=== PATIENT | female | born 1965 | race Caucasian/White ===

== ENCOUNTER → 2016-11-12 | Outpatient (CLI) | payer OTHER ==
--- NOTE | 2016-11-12 10:02 | MR ---
MRI of the brain with and without contrast HISTORY: Headaches. TECHNIQUE: T1-weighted sagittal, T2, FLAIR, and diffusion axial, postcontrast T1 axial and coronal vi ews of the brain are submitted. CONTRAST: 15 mL MultiHance COMPARISON: 03/06/2016 FINDINGS: There is no evidence of acute ischemia. The ventricles, basal cisterns, and sulci overlying the co nvexities are consistent with the patient's age. There is no mass effect or enhancing mass. Craniocervical junction maintained. Sella turcica has a normal appearance. No evidence of cerebellopo ntine angle mass. WHITE MATTER: There is faint confluent abnormal signal in the periventricular white matter as well as approximately 18 focal areas of abnormal signal within the white matter the largest seen overlying the left periat rial region measuring 8 mm. No enhancing lesions. There are 2 lesions which appear perpendicular to t he ventricular system. There is a single callosal lesion. IMPRESSION: 1. There are changes within the white matter which are nonspecific but can be associated with demyeli nating process including a mass. The size, number and morphology of lesions are stable from the previ ous exam. No enhancing or new lesions.
== END | disposition home or self-care (01) ==
LOC: RADMRIMAIN 08:51
PROVIDERS: ATTEND Psychiatry & Neurology Neurology
DX: G35 Multiple sclerosis (principal); R90.82 White matter disease, unspecified
CPT/HCPCS: 70553; A9577

== ENCOUNTER → 2016-12-23 | Outpatient (CLI) | payer OTHER ==
--- NOTE | 2016-12-23 23:09 | MR ---
EXAMINATION TYPE: MR lumbar spine wo/w con DATE OF EXAM: 12/23/2016 COMPARISON: NONE HISTORY: 51-year-old female with low back pain x3 months Technique: Multiplanar, multisequence images of the lumbar spine were obtained before and after admin istration of 20 mL intravenous MultiHance gadolinium contrast. FINDINGS: A couple incidental sacral Tarlov cysts measuring up to 1.5 cm. Vertebral body heights are preserved and alignment is maintained. Mild heterogeneity of marrow signal with some scattered fatty marrow islands versus fatty matrix elias ngiomas especially in the L4 and L5 vertebral bodies. A T2 hyperintense, T1 dark, and enhancing round lesion within the L2 vertebral body suspected to represent an atypical hemangioma. Otherwise, no real picious bone marrow replacement. Variable mild intervertebral disc desiccation within the lower lumbar spine along with facet arthropa thy. There is some ligamentum flavum thickening in the lower thoracic spine. At T12-L1, is minimal bulging disc without canal or foraminal stenosis. At L1-L2, no spinal canal or neuroforaminal stenosis. At L2-L3, no spinal canal or neuroforaminal stenosis. At L3-L4, mild diffuse disc bulge with a facet degenerative change. No significant spinal canal or ne uroforaminal stenosis. At L4-L5, minimal diffuse disc bulge and mild facet arthropathy. There is also some ligamentum flavum thickening. No significant spinal canal or foraminal stenosis. At L5-S1, there is hypertrophic facet arthropathy without significant spinal canal or foraminal steno sis. No abnormal enhancement seen within the spinal canal. No prevertebral or paravertebral soft tissue abnormality seen. IMPRESSION: 1. Mild multilevel degenerative disc disease and facet arthropathy especially in the mid to lower lum bar spine. There is more advanced hypertrophic facet arthropathy at L5-S1. 2. No malalignment or significant canal or foraminal stenosis.
== END | disposition home or self-care (01) ==
LOC: RADMRIMAIN 16:59
PROVIDERS: ATTEND Psychiatry & Neurology Neurology
DX: M51.17 Intervertebral disc disorders with radiculopathy, lumbosacral region (principal); M46.87 Other specified inflammatory spondylopathies, lumbosacral region
CPT/HCPCS: 72158; A9577

== ENCOUNTER → 2017-08-15 | Outpatient (CLI) | payer OTHER ==
[2017-08-15 11:26] LABS: HCT 42.9 % (34.0-46.0); HGB 13.9 gm/dL (11.4-16.0); MCH 28.7 pg (25.0-35.0); MCHC 32.3 g/dL (31.0-37.0); MCV 88.9 fL (80.0-100.0); Mean Platelet Volume 6.8; Platelet Count 343 k/uL (150-450); RBC 4.82 m/uL (3.80-5.40); RDW 13.4 % (11.5-15.5); WBC 10.7 k/uL (3.8-10.6)
[2017-08-15 11:34] LABS: ALT 36 U/L (9-52); AST 32 U/L (14-36); Anion Gap 9 mmol/L; Blood Urea Nitrogen 9 mg/dL (7-17); Calcium 9.3 mg/dL (8.4-10.2); Carbon Dioxide 29 mmol/L (22-30); Chloride 106 mmol/L (98-107); Glucose 89 mg/dL (74-99); Potassium 4.2 mmol/L (3.5-5.1); Sodium 144 mmol/L (137-145)
== END | disposition home or self-care (01) ==
LOC: LABWHC1 10:55
PROVIDERS: ATTEND Psychiatry & Neurology Neurology
DX: G35 Multiple sclerosis (principal)
CPT/HCPCS: 36415; 80048; 82306; 84450; 84460; 85027

== ENCOUNTER 2018-05-10 06:43 | Inpatient (IN) | payer OTHER ==
[2018-05-03 10:36] VITALS: BMI 37.3
[~2018-05-10 06:43] MED LIST: BACITRACIN 50,000 UNIT, POLYMYXIN B 500,000 UNIT in SODIUM CHLORIDE 0.9% IRRIGATIO 1,00... IRRIGATION ONE; DEXAMETHASONE SOD PHOSPHATE 10 MG/ML 1 ML VIAL IV ONE; MIDAZOLAM 2 MG/2 ML VIAL IV PRN; ONDANSETRON 4 MG/2 ML VIAL IVP ONE; ceFAZolin IN SWFI 2 GM/20 ML SYRINGE IVP ONE
[2018-05-10] MEDS: LACTATED RINGERS 1,000 ML IV SCH (07:44)
[2018-05-10] MEDS ORDERED: LIDOCAINE 1% 20 ML VIAL (10MG/ML) FOR IV START INTRADERMA ONE (07:45)
[2018-05-10 08:11] LABS: Anion Gap 8 mmol/L; Blood Urea Nitrogen 11 mg/dL (7-17); Calcium 9.1 mg/dL (8.4-10.2); Carbon Dioxide 25 mmol/L (22-30); Chloride 109 mmol/L (98-107); Glucose 93 mg/dL (74-99); Potassium 3.8 mmol/L (3.5-5.1); Sodium 142 mmol/L (137-145)
[2018-05-10] MEDS ORDERED: MIDAZOLAM 2 MG/2 ML VIAL ONE (08:24)
[2018-05-10] MEDS ORDERED: fentaNYL (PF) 50 MCG/ML 2 ML AMP ONE (08:24)
[2018-05-10] MEDS ORDERED: ROCURONIUM BROMIDE 10 MG/ML 10 ML VIAL IV ONE (08:24)
[2018-05-10] MEDS ORDERED: PROPOFOL 10 MG/ML 20 ML VIAL IV ONE (08:24)
[2018-05-10] MEDS ORDERED: PHENYLEPHRINE-0.9% NACL SYG 1 MG/10 ML SYRINGE ONE (08:24)
[2018-05-10] MEDS ORDERED: LIDOCAINE 1% INJ 10MG/ML (20 ML MDV) ONE (08:24)
[2018-05-10] MEDS ORDERED: LIDOCAINE 0.5%-EPI 1:200,000 50 ML VIAL SQ ONE (08:38)
[2018-05-10] MEDS ORDERED: THROMBIN (BOVINE) 5,000 UNIT VIAL TOPICAL ONE (08:38)
[2018-05-10] MEDS ORDERED: GELATIN SPONGE,ABSORB (LARGE) 1 EACH SPONGE TOPICAL ONE (08:38)
[2018-05-10] MEDS ORDERED: LACTATED RINGERS 1,000 ML IV ONE (09:33)
[2018-05-10] MEDS ORDERED: HYDROcodone/APAP 5-325MG 1 EACH TAB PO PRN (11:45)
[2018-05-10] MEDS ORDERED: ONDANSETRON 4 MG/2 ML VIAL IVP PRN (11:45)
[2018-05-10] MEDS ORDERED: BENZOCAINE/MENTHOL LOZENG 1 EACH LOZENGE MUCOUS MEM PRN (11:45)
[2018-05-10] MEDS ORDERED: HYDROmorphone 1 MG/ML 1 ML SYRINGE IVP PRN ×2 (11:45)
[2018-05-10] MEDS ORDERED: MAGNESIUM HYDROXIDE 2,400 MG/10 ML CUP PO PRN (11:45)
--- NOTE | 2018-05-10 11:52 | P.OP ---
Date of Procedure: 05/10/18 Preoperative Diagnosis: Grade 2 dynamic spondylolisthesis L5-S1, low back pain, degenerative disc disease, foraminal stenosis, lower extremity radiculopathy Postoperative Diagnosis: Grade 2 dynamic spondylolisthesis L5-S1, low back pain, degenerative disc disease, foraminal stenosis, lower extremity radiculopathy Anesthesia: GETA Pathology: none sent Condition: stable Disposition: PACU Description of Procedure: DESCRIPTION OF PROCEDURE(S): BRIEF OPERATIVE NOTE Preoperative Diagnosis: Grade 2 dynamic spondylolisthesis L5-S1, low back pain, degenerative disc disease, foraminal stenosis, lower extremity radiculopathy Postoperative Diagnosis:Grade 2 dynamic spondylolisthesis L5-S1, low back pain, degenerative disc disease, foraminal stenosis, lower extremity radiculopathy Procedure: Laminectomy and decompression L5-S1 Minimally invasive Posterior lateral decompression and facet fusion L5-S1 Minimally invasive Transforaminal lumbar interbody fusion for a 360 fusion L5-S1 Discectomy for decompression L5-S1 Placement of interbody graft L5-S1 Local autogenous bone grafting Harvesting of bone marrow aspirate the area of the pedicle and vertebral body of L5 on the right Use of Cell Saver Use of bone graft extenders Surgeon: Dr. Wallis Licensing Representative: Jarad Haines is present throughout the entire the case persistence during positioning, dissection, exposure, visualization, and all crucial elements of the case as well as closure. Anesthesia: General anesthesia Estimated blood loss: Approximately 100 mL Complications: None apparent Components implanted: K2M minimally invasive pedicle screw system Denia system with IV body expandable cage 2 rods and 1 large osteal amp sponge with 15 mL of DBX bone matrix fibers to supplement the local otitis and bone marrow aspirate graft Disposition: To recovery room in good stable condition. OPERATIVE INDICATIONS The patient has had long-standing issues in their lower back and lower extremities. She was having worsening symptoms despite aggressive conservative care. She was found have a dynamic spondylolisthesis at L5-S1 grade 2 listhesis. This was affecting her everyday activity as well as her ability to work. She is having worsening symptoms as well as lower extremity radiculopathy which quite well with her low back and lower extremity symptoms. The patient has been through conservative treatment. We discussed various treatment options including surgery, and the patient wishes to proceed with surgery We discussed the risk, patient's alternatives and benefits of surgery including but not limited to, risk of bleeding risk of infection, risk of need for further surgery, risk of decreased, loss of motion, muscle function, malunion nonunion, hardware failure, nerve damage, paralysis, heart attack, blindness and . OPERATIVE SUMMARY After discussing all the risks, patient alternatives and benefits at length, the patient elected to proceed with surgical intervention, signed informed consent, and presented for their procedure. The patient was seen and examined in the preoperative holding area and the surgical site was marked. The patient was given antibiotics and brought to the operating room. The patient was sedated and intubated by anesthesia in standard fashion. The patient was positioned on to the operating room table in a prone position on the appropriate frame which was well-padded and well molded. We were careful to pad any bony prominences and pressure points. We were careful to maintain the patient's cervical spine and good neutral alignment and position throughout. The patient was prepped and draped in a normal standard fashion. An appropriate timeout and keystone protocol performed. We were able to proceed with the surgery. The local wound area was infiltrated with local anesthetic. I was able utilize C-arm guidance to establish appropriate position over the pedicles bilaterally at the appropriate levels at L5-S1. With the appropriate levels confirmed was able to make small stab incisions over the appropriate pedicle sites bilaterally. Utilizing C-arm in his house able to establish a Jamshidi needle over the lateral aspect of the pedicle and advanced the trocar into the pedicle being careful not to breech superiorly inferiorly medially or laterally. Position was confirmed regularly with AP and lateral images on C- arm. I was able to establish the trocar into the pedicle appropriately into the posterior aspect of the vertebral body bilaterally at the appropriate levels. This was done at each of the pedicle positions and each of the vertebrae. At L5 on the right I was able to withdraw approximately 20 mL of bone marrow aspirate be of the trocar of the pedicle. I was able place the guidewire into the trocar and into the vertebral body appropriately under C-arm guidance. Dissection was taken down over the wire to the appropriate starting position for the screw placed. The appropriate length screw was chosen, threaded over the guidewire and screwed appropriately into the pedicle and vertebral body under C-arm guidance in excellent alignment and position with good bony purchase. This is done at each of the screw sites at the appropriate levels at L5 and S1 bilaterally. With the screws intact I extended the incision to connect the screw hole sites on the most symptomatic side on the left of L5-S1. I dissected down to establish access over the pars and lamina to the base of the spinous process. I was able to expose the facet joint. The capsule the facet was taken down and showed some facet arthrosis at the joint. I was able to use a combination of curettes and Kerrison rongeurs and a high-speed drill to take down the facet joint and do a facetectomy at L5-S1. Partial laminectomy was also performed. I was able get excellent foraminal decompression and central decompression with undermining across midline to perform a laminectomy centrally and contralaterally. As able get good central decompression. The ligamentum flavum was taken down to further decompress centrally and at bilateral neural foramen. I was able to expose the disc space and visualize the traversing nerve root. Note was made of some disc protrusion at the level causing further compression of the nerve root. I was able to establish a annulotomy at the appropriate level protecting soft tissue and neural structures. Note was made of some disc desiccation at the disc. I performed a complete discectomy with accommodation of curettes and rasps and scrapers. I was able get good endplate preparation at the disc space. I sized for the appropriate size interbody spacer protecting the soft tissue and neural structures. The wound was copiously irrigated and suctioned dry. There is no evidence of any dural tear or leak. I was able to pack the disc space with local autogenous bone graft as well as a small amount of bone graft which was also placed into the interbody cage itself. Protecting the soft tissue structures and neural structures I was able place the interbody cage in good alignment and good position with good fit and fill at the interbody space. I was able to check the position of the cage under direct visualization and it was seated in the vertebral body with no protrusion toward the nerve and no pressure on the nerves at all. Position was confirmed with C-arm guidance. Good hemostasis maintained. There is no evidence of any dural tear or leak. The wound was irrigated and suctioned dry. With the hardware intact, intraoperative C-arm imaging was again taken which showed good alignment and position of the hardware at the appropriate levels at L5-S1. We were then able to measure, contour and place the rods and appropriate hardware bilaterally. I was able to place capcrews, tighten them down, and torque them with the torque screwdriver appropriately. With this intact I was able to place the local autogenous bone graft with additional bone graft enhancer as necessary into the posterior lateral gutters over the decorticated transverse processes. The remainder of the bone graft was placed over the facet joint on the contralateral side after taking down the facet joint capsule. With the bone graft intact, a stable construct, and good decompression at the appropriate levels, we were able to proceed with closure. Good hemostasis was maintained. There is no evidence of dural tear or leak. The fascia was closed for a watertight closure. he subcuticular tissue was closed with absorbable suture. The wound was cleaned and dried and dressed with the appropriate dressing. The drapes were broken down. The patient was gently rolled back onto their hospital bed being careful to maintain their cervical spine and good neutral alignment and position. They were woken up by anesthesia, extubated, and brought to the recovery room in good stable condition. The patient will be admitted to the hospital for appropriate postoperative care , medical management and monitoring. We will continue to follow them closely about the postoperative course.
[2018-05-10] MEDS: HYDROmorphone 0.5 MG/0.5 ML SYRINGE IVP PRN ×2 (12:03→12:16)
[2018-05-10] MEDS: NON-FORMULARY DRUG (Glatiramer Acetate [Copaxone] 40 MG) SQ SCH (13:21)
[2018-05-10] MEDS: SODIUM CHLORIDE 0.9% 1,000 ML IV SCH (14:19)
--- NOTE | 2018-05-10 15:31 | XR ---
Limited lumbar spine HISTORY: Posterior fusion 6 intraoperative C-arm images document the procedure.
[2018-05-10] MEDS: ceFAZolin IN SWFI 2 GM/20 ML SYRINGE IVP SCH (15:38)
[2018-05-10] MEDS: HYDROcodone/APAP 5-325MG 1 EACH TAB PO PRN ×2 (15:38→20:33)
--- NOTE | 2018-05-10 16:17 | FL ---
Fluoroscopy HISTORY: Lumbar fusion 1 minute 41 seconds fluoroscopy time supplied to the referring clinician. 6 intraoperative C-arm roslyn ges document the procedure. See dictated report from orthopedic surgery.
--- NOTE | 2018-05-10 20:32 | CONS ---
CONSULTATION REASON FOR CONSULTATION: Advice regarding Crohn disease and other medications requested by Dr. Wallis. HISTORY OF PRESENT ILLNESS: This 53-year-old woman with a past history of DJD, history of pneumonia, multiple vascular surgeries, ulcerative colitis, eczema underwent laminectomy and decompression for spondylolysis and foraminal stenosis by Dr. Wallis. The patient tolerated the procedure. There is no history of fever, rigors. No headache, loss of consciousness or seizures at this time. The patient had mild nausea and cough also. PAST MEDICAL HISTORY: History of pneumonia, history of DJD, history of Crohn's disease, multiple vascular surgeries, ulcerative colitis, eczema. MEDICATIONS: Prior to admission include home medications are: 1. Multivitamins 1 p.o. daily. 2. Ibuprofen 600 mg b.i.d. p.r.n. 3. Copaxone 40 mg subcu Tuesday, Tuesday, Tuesday. 4. Vitamin D3 5000 daily. 5. Calcium carbonate 1200 mg p.o. daily. 6. Balsalazide 2250 mg p.o. b.i.d. ALLERGIES: None. FAMILY HISTORY: History of prostate cancer in the family. SOCIAL HISTORY: Previous history of smoker. Occasional alcohol intake. REVIEW OF SYSTEMS: ENT: No diminished hearing or vision. CARDIOVASCULAR: No angina RESPIRATORY: No cough or hemoptysis. GI: No nausea. : No dysuria. NERVOUS SYSTEM: No numbness or weakness. ALLERGY/IMMUNOLOGY: No asthma. MUSCULOSKELETAL: As mentioned earlier. HEMATOLOGY/ONCOLOGY: As mentioned earlier. ENDOCRINE: No history of diabetes or hypothyroidism. CONSTITUTIONAL: As mentioned. DERMATOLOGY: Negative. RHEUMATOLOGY: Negative. PSYCHIATRY: As mentioned earlier. PHYSICAL EXAMINATION: Alert and oriented x3. The pulse is 89, blood pressure 130/72, respirations 16, temperature 97.7, pulse ox 97% on 2 L. HEENT: Conjunctivae normal. Oral mucosa moist. Neck is no jugular venous distention. No carotid bruit. No lymph node enlargement. CARDIOVASCULAR: S1, S2 muffled. No S3, no S4. RESPIRATORY: Breath sounds diminished in the bases. A few scattered rhonchi. No crackles. ABDOMEN: Soft, nontender. No mass palpable. LEGS: No edema, swelling. NERVOUS SYSTEM: Higher functions as mentioned. Moves all four limbs. No focal motor deficits. LYMPHATICS: No lymphadenopathy in the neck, axillae, groin. SKIN: No ulcer, rash or bleeding. JOINTS: No active deforming arthropathy. EXAMINATION OF THE BACK: Status post surgery. LAB INVESTIGATIONS: At this time: Sodium is 140, potassium 3.8, and other labs, the hematology, WBC 10.7 and other labs are noted. ASSESSMENT: 1. Status post laminectomy decompression L5-S1 for spondylolysis and as well as foraminal stenosis. 2. History of degenerative joint disease. 3. History of pneumonia. 4. History of Crohn's disease. 5. History of multiple sclerosis. 6. History of ulcerative colitis. 7. History of eczema. 8. Remote history of nicotine dependence. RECOMMENDATIONS AND DISCUSSION: This 53-year-old woman who presented with multiple complex medical issues, we will monitor the patient closely. Continue the current management and symptomatic treatment. I recommend resume the home medications. DVT prophylaxis. Incentive spirometry. We will follow the patient closely with you. Thank you, Dr. Wallis, for letting us participate in this patient's care. MMRAKANL / IJN: [id number] /
[2018-05-10] MEDS: BALSALAZIDE DISODIUM 750 MG CAPSULE PO SCH (20:34)
[2018-05-11] MEDS: ceFAZolin IN SWFI 2 GM/20 ML SYRINGE IVP SCH (00:13)
[2018-05-11] MEDS: HYDROcodone/APAP 5-325MG 1 EACH TAB PO PRN ×5 (01:43→19:46)
[2018-05-11] MEDS: SODIUM CHLORIDE 0.9% 1,000 ML IV SCH ×2 (02:09→14:37)
[2018-05-11] MEDS: LACTATED RINGERS 1,000 ML IV SCH (06:50)
[2018-05-11 08:20] LABS: Basophils % (A) 0 %; Eosinophils % (A) 0 %; HCT 34.9 % (34.0-46.0); HGB 11.6 gm/dL (11.4-16.0); Lymphocytes # (A) 0.9 k/uL (1.0-4.8); Lymphocytes % (A) 10 %; MCH 29.5 pg (25.0-35.0); MCHC 33.2 g/dL (31.0-37.0); MCV 88.8 fL (80.0-100.0); Monocytes # (A) 0.6 k/uL (0-1.0); Monocytes % (A) 6 %; Neutrophils # (A) 8.1 k/uL (1.3-7.7); Neutrophils % (A) 83 %; Platelet Count 256 k/uL (150-450); RBC 3.93 m/uL (3.80-5.40); RDW 13.9 % (11.5-15.5); WBC 9.8 k/uL (3.8-10.6)
[2018-05-11 08:31] LABS: Anion Gap 7 mmol/L; Blood Urea Nitrogen 10 mg/dL (7-17); Calcium 8.3 mg/dL (8.4-10.2); Carbon Dioxide 26 mmol/L (22-30); Chloride 108 mmol/L (98-107); Glucose 91 mg/dL (74-99); Potassium 3.7 mmol/L (3.5-5.1); Sodium 141 mmol/L (137-145)
--- NOTE | 2018-05-11 09:25 | P.PN ---
Progress Note - Text Progress Note Date: 05/11/18 Postoperative day #1 Patient is seen and examined today at bedside. The patient has some pain around the surgical site as expected. Pain is being controlled with medication. She is comfortable in bed now and has been ambulatory in the hallways with therapy Physical Exam Afebrile with stable vital signs Abdomen is soft nontender. Chest has good excursion deep and space expiration The incision site is clean dry and intact. No erythema there is no purulence. Extremities have not had neurologic change from prior to surgery. She has good sustained dorsal flexion plantar flexion and EHL Calves and thighs were soft nontender without evidence of DVT. Assessment/Plan Postoperative day #1 status post minimally invasive decompression and fusion L5- S1 for her spondylolisthesis with stenosis Patient is progressing as expected from the surgery. She is progressing nicely and is tolerating her diet better today. Her nausea from last and has been resolved We will continue to increase the patient's mobilization with therapy. We will continue pain control with oral or IV medications. We'll continue to follow patient closely. She'll likely be able be discharged home tomorrow
[2018-05-11] MEDS: CHOLECALCIFEROL 1,000 UNIT TAB PO SCH (10:12)
[2018-05-11] MEDS: CALCIUM CARBONATE 500 MG CHEWABLE PO SCH (10:12)
[2018-05-11] MEDS: SENNOSIDES-DOCUSATE SODIUM 1 EACH TAB PO SCH (10:13)
[2018-05-11] MEDS: BALSALAZIDE DISODIUM 750 MG CAPSULE PO SCH ×2 (10:13→21:23)
[2018-05-11] MEDS: MULTIVITAMINS, THERA 1 EACH TAB PO SCH (14:38)
--- NOTE | 2018-05-12 00:03 | PN ---
PROGRESS NOTE DATE OF SERVICE: 05/11/2018 This 53-year-old woman was admitted after laminectomy decompression, is improving significantly. No chest pain. No palpitations. No fever. EXAM: Alert and oriented. Pulse is 84, blood pressure 150/88, respiration 18, temperature 98 degrees, pulse ox 98% on room air. HEENT: Conjunctivae normal. Oral mucosa. NECK: No jugular venous distention. No lymph node enlargement. CARDIOVASCULAR: S1, S2. RESPIRATORY: Diminished breath sounds at the bases. No rhonchi, no crackles. ABDOMEN: Soft, nontender. LEGS: No swelling. BACK: Status post surgery. NERVOUS SYSTEM: No focal deficits. LABS: CBC within normal limits. BMP normal. ASSESSMENT: 1. Status post laminectomy and decompression L5-S1 for spondylosis as well as foraminal stenosis. 2. History of DJD. 3. History of pneumonia. 4. History of Crohn's disease. 5. History of multiple sclerosis. 6. History of ulcerative colitis. 7. History of MRSA. 8. Remote history of nicotine dependence. RECOMMENDATIONS: Recommend to continue current management, continue symptomatic treatment. Otherwise, at this time I will recommend continue with DVT prophylaxis and incentive spirometry. Further recommendations to follow. MMODL / IJN: [id number] /
[2018-05-12] MEDS: HYDROcodone/APAP 5-325MG 1 EACH TAB PO PRN ×3 (03:19→12:14)
[2018-05-12] MEDS: SODIUM CHLORIDE 0.9% 1,000 ML IV SCH (03:21)
[2018-05-12] MEDS: LACTATED RINGERS 1,000 ML IV SCH (05:00)
[2018-05-12 07:22] VITALS: RESP 12
--- NOTE | 2018-05-12 10:34 | P.DS ---
Providers Date of admission: 05/10/18 06:43 Attending physician: Lucia Wallis Consults: 05/10/18 11:45 Consult Physician Routine Consulting Provider: Christian Gutierrez Reason/Comments: Medical management Do you want consulting provider notified?: Yes 05/10/18 12:09 Consult Physician Routine Consulting Provider: Chapis Cramer Reason/Comments: medical management Do you want consulting provider notified?: Yes Primary care physician: Christian Gutierrez Hospital Course: The patient presented on the day of admission as per her operative note. She had a dynamic spondylolisthesis with stenosis and lower extremity radiculopathy and underwent her minimally invasive decompression and fusion as per her operative note. She says she is feeling better. She says her back has some pain but it is improving steadily. She says her legs are doing well she denies any weakness in her lower extremities. She has been ambulatory in her room on her own. Physical Exam The incision site is clean dry and intact. There is no erythema no drainage. There is no purulence no evidence of infection. Abdomen soft and nontender. Chest has good excursion with deep inspiration and expiration. The patient has active and passive range of motion intact at the upper and lower extremities. There is no acute change in neurologic status. She has sustained dorsal flexion plantar flexion and EHL intact. His thighs and calves soft nontender negative Homans. Hospital Course Postoperative day #2 status post minimally invasive decompression and fusion for her dynamic spondylolisthesis with spinal stenosis and lower extremity radiculopathy The patient has been making good progress postoperatively. They have completed the prophylactic antibiotics without any signs or symptoms of infection. The patient has been able to advance their diet, and is tolerating diet adequately. The pain was initially controlled with IV medications and is now controlled appropriately with oral medications. The patient has been able to increase their mobilization. She has been ambulatory independently on her room The patient has progressed appropriately. I think they are in good stable condition for discharge today. They will be sent home with appropriate prescriptions. I answered their questions to the best of my ability in a language that they can understand and they are agreeable with the plan. We will give her new prescription for [place] for home use for pain. They will follow up as directedin approximately 2 weeks or if she has any problems we can see her sooner. Plan - Discharge Summary Discharge Rx Participant: Yes New Discharge Prescriptions: New HYDROcodone/APAP 5-325MG [[place] 5] 1 - 2 each PO Q6HR PRN #56 tab PRN Reason: Moderate To Severe Pain No Action Glatiramer Acetate [Copaxone] 40 mg SQ MOWEFR Multivitamins, Thera [Multivitamin] 1 tab PO DAILY Cholecalciferol [Vitamin D3] 5,000 unit PO DAILY Calcium Carbonate [Calcium] 1,200 mg PO DAILY Balsalazide Disodium 2,250 mg PO BID Ibuprofen [Advil] 600 mg PO BID PRN PRN Reason: Pain Discharge Medication List Glatiramer Acetate [Copaxone] 40 mg SQ MOWEFR 04/22/16 [History] Multivitamins, Thera [Multivitamin] 1 tab PO DAILY 04/22/16 [History] Balsalazide Disodium 2,250 mg PO BID 05/03/18 [History] Calcium Carbonate [Calcium] 1,200 mg PO DAILY 05/03/18 [History] Cholecalciferol [Vitamin D3] 5,000 unit PO DAILY 05/03/18 [History] Ibuprofen [Advil] 600 mg PO BID PRN 05/03/18 [History] HYDROcodone/APAP 5-325MG [[place] 5] 1 - 2 each PO Q6HR PRN #56 tab 05/11/18 [Rx] Follow up Appointment(s)/Referral(s): Lucia Wallis DO [Doctor of Osteopathic Medicine] - 2 Weeks Activity/Diet/Wound Care/Special Instructions: Ambulate as tolerated. No repetitive bending and lifting or twisting. No heavy activity May shower with waterproof Tegaderm intact, do not soak in a tub On Tuesday, the patient may shower with area uncovered the Steri-Strips intact and allow them to fray off on their own. Discharge Disposition: HOME SELF-CARE
[2018-05-12] MEDS: CALCIUM CARBONATE 500 MG CHEWABLE PO SCH (12:11)
[2018-05-12] MEDS: MULTIVITAMINS, THERA 1 EACH TAB PO SCH (12:11)
[2018-05-12] MEDS: SENNOSIDES-DOCUSATE SODIUM 1 EACH TAB PO SCH (12:11)
[2018-05-12] MEDS: CHOLECALCIFEROL 1,000 UNIT TAB PO SCH (12:11)
[2018-05-12] MEDS: BALSALAZIDE DISODIUM 750 MG CAPSULE PO SCH (12:11)
[2018-05-12 14:45] VITALS: BP 108/71; PULSE 83; TEMP 97.6
[2018-05-12] MEDS: NON-FORMULARY DRUG (Glatiramer Acetate [Copaxone] 40 MG) SQ SCH (14:54)
--- NOTE | 2018-05-12 20:49 | PN ---
PROGRESS NOTE DATE OF SERVICE: 05/12/2018 This 53-year-old woman who was admitted after laminectomy and decompression is being closely monitored. No chest pain. No palpitations. No fever. EXAM: Alert and oriented times three. Pulse is 84. Blood pressure 103/68. Respirations 12, temperature 98.4, pulse ox 94% on room air. HEENT: Conjunctivae normal. Oral mucosa moist. Neck is no jugular venous distention. No carotid bruit. No lymph node enlargement. Cardiovascular: S1, S2. Respiratory: Breath sounds diminished in the bases. No rhonchi. No crackles. Abdomen is soft, nontender. Legs are no edema. No swelling. Central nervous system: No focal deficits. LABORATORY DATA: WBC 9.2, hemoglobin is 11.7. Other labs are noted. ASSESSMENT: 1. Status post laminectomy decompression L5-S1 for spondylosis as well as foraminal stenosis. 2. History of degenerative joint disease. 3. History of pneumonia. 4. History of Crohn's disease. 5. History of multiple sclerosis. 6. History of ulcerative colitis. 7. History of MRSA. 8. Remote history of nicotine dependence. RECOMMENDATIONS AND DISCUSSION: Recommend to continue current medications, management and symptomatic treatment. Otherwise, at this time, I recommend continue with current medications. Resume the home medications. Follow with primary physician and Orthopedic surgery. Further recommendations to follow. MMODL / IJN: [id number] /
== END 2018-05-12 15:20 | disposition home or self-care (01) | DRG 454 ==
LOC: 2ORMAIN 06:43 → 4SSUR 11:53
PROVIDERS: ADMIT Orthopaedic Surgery Orthopaedic Surgery of the Spine; ATTEND Orthopaedic Surgery Orthopaedic Surgery of the Spine
PROC: 0SG0071 Fusion of Lumbar Vertebral Joint with Autologous Tissue Substitute, Posterior Approach, Posterior Column, Open Approach (ICD-10-PCS; 2018-05-10)
PROC: 0ST40ZZ Resection of Lumbosacral Disc, Open Approach (ICD-10-PCS; 2018-05-10)
PROC: 07DS3ZZ Extraction of Vertebral Bone Marrow, Percutaneous Approach (ICD-10-PCS; 2018-05-10)
PROC: 30233N0 Transfusion of Autologous Red Blood Cells into Peripheral Vein, Percutaneous Approach (ICD-10-PCS; 2018-05-10)
PROC: 4A11X4G Monitoring of Peripheral Nervous Electrical Activity, Intraoperative, External Approach (ICD-10-PCS; 2018-05-10)
PROC: 0SG30AJ Fusion of Lumbosacral Joint with Interbody Fusion Device, Posterior Approach, Anterior Column, Open Approach (ICD-10-PCS; principal; 2018-05-10 08:30)
DX: M43.17 Spondylolisthesis, lumbosacral region (principal); K50.90 Crohn's disease, unspecified, without complications; M48.07 Spinal stenosis, lumbosacral region; M51.17 Intervertebral disc disorders with radiculopathy, lumbosacral region; G35 Multiple sclerosis; L30.9 Dermatitis, unspecified; M19.90 Unspecified osteoarthritis, unspecified site; Z87.891 Personal history of nicotine dependence; Z87.01 Personal history of pneumonia (recurrent); Z86.14 Personal history of Methicillin resistant Staphylococcus aureus infection; Z79.899 Other long term (current) drug therapy
CPT/HCPCS: 72100; 80048; 81025; 85025; 86850; 86900; 86901

== ENCOUNTER 2018-07-14 10:29 | Day surgery (SDC) | payer BC, OTHER ==
[2018-07-12 14:24] VITALS: BMI 37.1
[~2018-07-14 10:29] MED LIST changes: -BACITRACIN 50,000 UNIT, POLYMYXIN B 500,000 UNIT in SODIUM CHLORIDE 0.9% IRRIGATIO 1,00... IRRIGATION ONE; -DEXAMETHASONE SOD PHOSPHATE 10 MG/ML 1 ML VIAL IV ONE; +LACTATED RINGERS 1,000 ML IV SCH; -MIDAZOLAM 2 MG/2 ML VIAL IV PRN; -ONDANSETRON 4 MG/2 ML VIAL IVP ONE; -ceFAZolin IN SWFI 2 GM/20 ML SYRINGE IVP ONE
[2018-07-14 11:11] VITALS: RESP 16; TEMP 97.7
[2018-07-14] MEDS ORDERED: PROPOFOL 10 MG/ML 20 ML VIAL IV ONE (12:31)
[2018-07-14 13:28] VITALS: BP 120/61; PULSE 68
--- NOTE | 2018-07-14 14:49 | P.PCN ---
Date of Procedure: 07/14/18 Procedure(s) Performed: BRIEF HISTORY: Patient is a 50-year-old pleasant white female, with long- standing history of Crohn's colitis diagnosed in 1996. She underwent left sided colon resection for colon perforation in June 2015. Since then has been maintained on colozal 3 tablets twice daily. She is scheduled for an elective colonoscopy as a part of surveillance of long-standing history of Crohn 's colitis. PROCEDURE PERFORMED: Colonoscopy with random biopsies. PREOPERATIVE DIAGNOSIS: Pending history of Crohn's colitis. IV sedation per Anesthesia. PROCEDURE: After informed consent was obtained, the patient, was brought into the endoscopy unit. IV sedation was administered by Anesthesia under continuous monitoring. Digital rectal examination was normal. Initially the Olympus CF- 160 flexible video colonoscope was then inserted in the rectum, gradually advanced into the cecum without any difficulty. Careful examination was performed as the scope was gradually being withdrawn. Ileocecal valve and the appendiceal orifice were visualized and appeared normal. Prep was excellent. Terminal ileum was slightly inflamed with scattered erosions and some erosions noted on the ileocecal valve and biopsies were done from this area. Mucosa of the cecum, ascending colon, transverse colon, appeared normal. The anastomosis was located at 20 cm from the anal verge and multiple erosions noted on the anastomosis and biopsies were done from this area. The rectum appeared normal. Retroflexion was performed in the rectum and no lesions were seen. The patient tolerated the procedure well. IMPRESSION: Superficial erosions noted on the ileocecal valve and the terminal ileum status post multiple biopsies Erosions at the ileocolic anastomosis in the distal sigmoid colon at 20 cm from the anal verge status post multiple biopsies RECOMMENDATIONS: Findings of this examination were discussed with the patient as well as a family she. She was advised to follow with the biopsy results. She was advised to increase the Colozal 3 tablets 3 times daily and she'll be seen in the office in few weeks. If she continues to have active disease endoscopy will consider Biologics or immunomodulators in the near future..
== END 2018-07-14 13:51 | disposition home or self-care (01) ==
LOC: ORWHC2ENDO 10:29
PROVIDERS: ATTEND Internal Medicine Gastroenterology
DX: K51.90 Ulcerative colitis, unspecified, without complications (principal); K50.10 Crohn's disease of large intestine without complications; Z98.0 Intestinal bypass and anastomosis status; Z90.49 Acquired absence of other specified parts of digestive tract; G35 Multiple sclerosis; Z79.899 Other long term (current) drug therapy; Z79.1 Long term (current) use of non-steroidal anti-inflammatories (NSAID)
CPT/HCPCS: 81025; 88305; 45380; J2704

== ENCOUNTER → 2019-02-22 | Outpatient (CLI) | payer BC ==
--- NOTE | 2019-02-22 16:19 | MR ---
EXAMINATION TYPE: MR brain/cspine wo/w DATE OF EXAM: 02/22/2019 COMPARISON: MRI brain dated 11/12/2016 and MRI brain/cervical spine dated 03/12/2015 HISTORY: Weakness, MS TECHNIQUE: Multiplanar, multisequence images of the brain and brainstem is performed without and with IV contras t, utilizing 9 mL intravenous Gadavist . FINDINGS: Brain: Diffusion weighted images demonstrate no evidence of a recent infarct or other diffusion abnor mality. There is no extra-axial fluid collection. The ventricular system and cisternal spaces are no rmal in size and appearance. The brain volume is age appropriate. White matter change is stable from the prior of 11/12/2018 with the largest again noted in the left pe riatrial white matter of the temporal lobe measuring approximately 8 mm. Again there are approximatel y 18 scattered foci in the pericallosal, periatrial, juxtacortical, and periventricular white matter. No infratentorial lesions are seen. There is no enhancement of these T1 hypointense lesions. There i s a stable callosal lesion within the posterior body of the corpus callosum on FLAIR sagittal nonfat sat image 17. Midline structures demonstrate normal morphology. The craniocervical junction appears within normal limits. Post contrast images demonstrate no abnormal enhancement. The dural venous sinuses appear pa tent. The visualized sinuses are clear and the globes are intact. Cervical spine: The cervical spine vertebral bodies maintain normal vertebral body heights and alignment. Bone marrow signal is overall within normal limits other than small hemangioma that a 3 and C5. Abnormal cord si gnal is similar to the prior exam of 2014 at C2-C3 (with new mild cord volume loss at this level), C5 , and C6. There is also relative slight cord loss at these levels when compared to the volume and C4. Mild multilevel disc desiccation is seen. Perineural cysts are again noted at C5-C6, C6-C7 and C7-T1. Postcontrast images are slightly limited secondary to patient motion on the sagittal sequence howeve r no discrete abnormal enhancement is seen on the postcontrast axial images. At C2-C3 there is a small broad-based disc bulge without spinal canal stenosis nor neural foraminal n arrowing. At C3-C4 there is a left eccentric disc bulge minimally narrowing the left neural foramen. No spinal canal stenosis nor neural foraminal narrowing. At C4-C5 there is uncovertebral hypertrophy and the left and a small broad-based disc bulge as well a s facet arthropathy creating mild left neural foraminal narrowing. Spinal canal and right neuroforame n are patent. At C5-C6 there is mild bilateral uncovertebral hypertrophy and a small central posterior disc osteoph yte complex resulting in mild bilateral neural foraminal narrowing without spinal canal stenosis. The re is mild ligamentum flavum buckling. At C6-C7 there is ligamentum flavum buckling and a broad-based disc bulge with uncovertebral hypertro phy creating very minimal bilateral neural foraminal narrowing without spinal canal stenosis. At C7-T1 there is disc desiccation without spinal canal stenosis nor neural foraminal narrowing. IMPRESSION: 1. 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 No new lesion s nor infratentorial lesions within the brain. No enhancing lesions nor lesions that restricted diffu amelia to suggest active demyelination. 2. Stable demyelinating cervical cord plaques at C2-C3, C5, and C6 with new mild apparent volume loss indicative of myelomalacia (very mild). No abnormal enhancement of the cervical spinal cord. 3. Mild multilevel disc desiccation as detailed above without spinal canal stenosis nor focal disc he rniation.
== END | disposition home or self-care (01) ==
LOC: RADMRIMAIN 09:44
PROVIDERS: ATTEND Psychiatry & Neurology Neurology
DX: R90.89 Other abnormal findings on diagnostic imaging of central nervous system (principal); G35 Multiple sclerosis; G95.89 Other specified diseases of spinal cord
CPT/HCPCS: 70553; 72156; A9585

== ENCOUNTER → 2020-04-21 | Outpatient (CLI) | payer BC ==
[2020-04-21 15:12] LABS: Basophils % (A) 0 %; Eosinophils # (A) 0.2 k/uL (0-0.7); Eosinophils % (A) 3 %; HCT 43.2 % (34.0-46.0); HGB 13.8 gm/dL (11.4-16.0); Lymphocytes # (A) 1.2 k/uL (1.0-4.8); Lymphocytes % (A) 15 %; MCH 30.6 pg (25.0-35.0); MCHC 31.9 g/dL (31.0-37.0); MCV 95.9 fL (80.0-100.0); Mean Platelet Volume 6.8; Monocytes # (A) 0.4 k/uL (0-1.0); Monocytes % (A) 5 %; Neutrophils # (A) 6.2 k/uL (1.3-7.7); Neutrophils % (A) 77 %; Platelet Count 325 k/uL (150-450); RDW 14.1 % (11.5-15.5); WBC 8.1 k/uL (3.8-10.6)
[2020-04-21 19:47] LABS: Albumin 4.1 g/dL (3.80-4.90); Albumin/Globulin Ratio 1.86 (1.60-3.17); Anion Gap 6.7 mmol/L (4.00-12.00); BUN/Creat Ratio 12.86 Ratio (12.00-20.00); Carbon Dioxide 27.3 mmol/L (21.6-31.8); Globulin 2.2 g/dL (1.6-3.3); Non-African American GFR(CKD) 97.5 (60.0-200.0); Potassium 3.8 mmol/L (3.5-5.5); Total Bilirubin 0.3 mg/dL (0.2-1.2); Total Protein 6.3 g/dL (6.2-8.2)
== END | disposition home or self-care (01) ==
LOC: LABWHC1 14:02
PROVIDERS: ATTEND Internal Medicine Gastroenterology
DX: K50.90 Crohn's disease, unspecified, without complications (principal)
CPT/HCPCS: 36415; 80053; 85025

== ENCOUNTER → 2020-06-21 | Outpatient (CLI) | payer BC ==
--- NOTE | 2020-06-21 15:26 | MR ---
EXAMINATION TYPE: MR brain/cspine wo/w DATE OF EXAM: 06/21/2020 COMPARISON: 02/22/2019 HISTORY: Numbness/weakness left arm and leg, MS CONTRAST: Standard multiplanar, multisequence MRI departmental protocol utilizing 9 mL intravenous Gadavist marissa olinium contrast. Ventricles have normal size. There is no mass effect nor midline shift. There is no sign of intracran ial hemorrhage. Diffusion images show no evidence of an acute infarct. On the T2 and FLAIR images the re are a few white matter high signal foci adjacent to the lateral ventricles that measure up to 1 cm . Total number is less than 10.. The brainstem is intact. White matter lesions are seen in the corpus callosum anteriorly and posteriorly. Cervical vertebra have normal alignment. Disc spaces are fairly normal. There is no compression fract ure. There is poorly marginated 12 x 4 mm area of increased signal in the cervical spinal cord at the C2-3 level. There is similar appearing focus within the cord at C5-6 level. There is minimal posterior di sc bulging at C4-5 and C6-7. There is no spinal stenosis. I see no pathologic enhancement of the cerv ical spinal cord. There is 4 mm focus of slight increased signal in the posterior spinal cord at the C6 level. There is very slight thinning of the cervical spinal cord at the C3 level. IMPRESSION: White matter lesions in the periventricular white matter in including the corpus callosum are slightl y increased compared to old MR scan of 02/22/2019 and suggestive of some progression of demyelinating d isease. Abnormality appears slightly increased in the posterior aspect of the corpus callosum. White matter lesions in the cervical spinal cord as above consistent with demyelinating disease appea r stable compared to old exam.
== END | disposition home or self-care (01) ==
LOC: RADMRIMAIN 10:55
PROVIDERS: ATTEND Psychiatry & Neurology Neurology
DX: G93.9 Disorder of brain, unspecified (principal); G35 Multiple sclerosis; R53.1 Weakness
CPT/HCPCS: 70553; 72156; A9585

== ENCOUNTER → 2020-07-31 | Outpatient (CLI) | payer BC ==
[2020-07-31 19:19] LABS: HCT 40.7 % (37.2-46.3); HGB 13.3 g/dL (12.0-15.0); MCH 30.9 pg (27.0-32.0); MCHC 32.7 g/dL (32.0-37.0); MCV 94.4 fL (80.0-97.0); Mean Platelet Volume 9.5 fL (9.5-12.2); Platelet Count 325 X 10*3/uL (140-440); RBC 4.31 X 10*6/uL (4.10-5.20); RDW 14.5 % (11.5-14.5); WBC 6.74 X 10*3/uL (4.50-10.00)
[2020-07-31 20:16] LABS: ALT 22 U/L (8-44); AST 32 U/L (13-35); Albumin/Globulin Ratio 2.44 (1.60-3.17); Alkaline Phosphatase 85 U/L (41-126); BUN/Creat Ratio 14.29 Ratio (12.00-20.00); Bilirubin, Conjugated <0.20 mg/dL (0.20-0.40); Calcium 9.2 mg/dL (8.7-10.3); Carbon Dioxide 27.8 mmol/L (21.6-31.8); Chloride 107 mmol/L (96-109); Globulin 1.8 g/dL (1.6-3.3); Glucose 82 mg/dL (70-110); Non-African American GFR(CKD) 97.5 (60.0-200.0); Potassium 4.4 mmol/L (3.5-5.5); Sodium 143 mmol/L (135-145); Total Bilirubin 0.4 mg/dL (0.2-1.2); Total Protein 6.2 g/dL (6.2-8.2)
== END | disposition home or self-care (01) ==
LOC: LABWHC1 10:58
PROVIDERS: ATTEND Psychiatry & Neurology Neurology
DX: G35 Multiple sclerosis (principal); Z79.899 Other long term (current) drug therapy
CPT/HCPCS: 36415; 80053; 82248; 82306; 84439; 84443; 84481; 85027; 86480

== ENCOUNTER 2020-12-26 10:10 | Day surgery (SDC) | payer BC ==
[2020-12-25 14:09] VITALS: BMI 38.2
[2020-12-26 10:36] VITALS: TEMP 98.7
[2020-12-26] MEDS ORDERED: PROPOFOL 10 MG/ML 20 ML VIAL IV ONE (11:36)
--- NOTE | 2020-12-26 11:54 | P.PCN ---
Date of Procedure: 12/26/20 Procedure(s) Performed: BRIEF HISTORY: Patient is a 55-year-old pleasant 8 female scheduled for an elective colonoscopy as a part of ascending history of Crohn's colitis diagnosed in 1996. She underwent segmental left colon resection for perforation in 2015. She was maintained on Imuran for 2 years. She is been off Imuran in 2018 and remains on balsalazide 3 tablets 3 times daily. Her last colonoscopy was in June 2018 and was noted to have superficial erosion on the ileocecal valve and the terminal ileum and erosions at the ileorectal anastomosis. She is scheduled for a surveillance colonoscopy today. PROCEDURE PERFORMED: Colonoscopy with biopsy. PREOPERATIVE DIAGNOSIS: Long-standing history of Crohn's colitis. IV sedation per Anesthesia. PROCEDURE: After informed consent was obtained, the patient, was brought into the endoscopy unit. IV sedation was administered by Anesthesia under continuous monitoring. Digital rectal examination was normal. Initially the Olympus CF-160 flexible video pediatric colonoscope was then inserted in the rectum, gradually advanced into the cecum without any difficulty. Careful examination was performed as the scope was gradually being withdrawn. Ileocecal valve and the appendiceal orifice were visualized and appeared normal. The terminal ileum was intubated and there were several scattered erosions and ulcerations noted consistent with Crohn's disease and biopsies were done from this area. Prep was fair.. Mucosa of the cecum, ascending colon, transverse colon, appeared normal. There was a near colic anastomosis located at 20 cm from anal verge and there was anastomotic stricture with multiple erosions or ulcerations noted and biopsi es were done from this area. The rectum appeared normal. Retroflexion was performed in the rectum and no lesions were seen. The patient tolerated the procedure well. IMPRESSION: 1. Multiple superficial erosions and ulcerations in the terminal ileum consistent with Crohn's ileitis 2. Distal sigmoid stricture at the ileosigmoid anastomosis located at 20 cm from the anal verge with multiple mucosal erosions or ulcerations status post biopsies 3. The ascending colon, transverse colon and distal rectum appeared normal RECOMMENDATIONS: Findings of this examination were discussed with the patient as well as a family. She was advised to follow with the biopsy results and she'll be seen in office in 2 weeks to discuss the immunomodulators while was his biological therapy..
[2020-12-26 12:28] VITALS: BP 124/74; PULSE 69; RESP 20
== END 2020-12-26 12:39 | disposition home or self-care (01) ==
LOC: ORWHC2ENDO 10:10
PROVIDERS: ATTEND Internal Medicine Gastroenterology
DX: K52.89 Other specified noninfective gastroenteritis and colitis (principal); K52.9 Noninfective gastroenteritis and colitis, unspecified; K50.10 Crohn's disease of large intestine without complications; Z79.899 Other long term (current) drug therapy; G35 Multiple sclerosis; Z79.1 Long term (current) use of non-steroidal anti-inflammatories (NSAID)
CPT/HCPCS: 88305; 84703; 45380; J2704

== ENCOUNTER → 2021-01-27 | Outpatient (CLI) | payer BC ==
[2021-01-27 23:05] LABS: Basophils # (A) 0.04 X 10*3/uL (0.00-0.10); Basophils % (A) 0.4 %; Eosinophils % (A) 0.9 %; HCT 43.4 % (37.2-46.3); HGB 13.8 g/dL (12.0-15.0); Lymphocytes # (A) 0.92 X 10*3/uL (0.90-5.00); Lymphocytes % (A) 8.5 %; MCH 28.7 pg (27.0-32.0); MCHC 31.8 g/dL (32.0-37.0); MCV 90.2 fL (80.0-97.0); Mean Platelet Volume 9.9 fL (9.5-12.2); Monocytes # (A) 0.45 X 10*3/uL (0.20-1.00); Monocytes % (A) 4.2 %; Neutrophils # (A) 9.27 X 10*3/uL (1.80-7.70); Neutrophils % (A) 85.4 %; Platelet Count 311 X 10*3/uL (140-440); RBC 4.81 X 10*6/uL (4.10-5.20); RDW 13.8 % (11.5-14.5); WBC 10.84 X 10*3/uL (4.50-10.00)
[2021-01-28 00:13] LABS: Erythrocyte Sedimentation Rate 16 mm/Hr (0-30)
[2021-01-28 09:46] LABS: Albumin 4.2 g/dL (3.80-4.90); Albumin/Globulin Ratio 1.68 (1.60-3.17); Anion Gap 14.1 mmol/L (4.00-12.00); BUN/Creat Ratio 12.86 Ratio (12.00-20.00); C Reactive Protein 1.2 mg/dL (0.0-0.8); Carbon Dioxide 22.9 mmol/L (21.6-31.8); Globulin 2.5 g/dL (1.6-3.3); Non-African American GFR(CKD) 97.5 (60.0-200.0); Potassium 3.6 mmol/L (3.5-5.5); Total Bilirubin 0.3 mg/dL (0.3-1.2); Total Protein 6.7 g/dL (6.2-8.2)
[2021-01-28 12:07] LABS: Hepatitis A Antibody IgM Non-Reactive (Non-Reactive); Hepatitis B Core IgM Non-Reactive (Non-Reactive); Hepatitis B Surface Antigen Non-Reactive (Non-Reactive); Hepatitis C IgG Antibody Non-Reactive (Non-Reactive)
== END | disposition home or self-care (01) ==
LOC: LABWHC1 15:44
PROVIDERS: ATTEND Physician Assistant
DX: K50.80 Crohn's disease of both small and large intestine without complications (principal)
CPT/HCPCS: 36415; 80053; 80074; 85025; 85652; 86140; 86480

== ENCOUNTER → 2021-09-09 | Outpatient (CLI) | payer BC ==
[2021-09-09 13:56] LABS: Basophils # (A) 0.05 X 10*3/uL (0.00-0.10); Basophils % (A) 0.7 %; Eosinophils # (A) 0.17 X 10*3/uL (0.04-0.35); Eosinophils % (A) 2.3 %; HCT 46.6 % (37.2-46.3); HGB 15.1 g/dL (12.0-15.0); Immature Grans, Automated 0.5 %; Lymphocytes # (A) 0.91 X 10*3/uL (0.90-5.00); Lymphocytes % (A) 12.5 %; MCH 28.7 pg (27.0-32.0); MCHC 32.4 g/dL (32.0-37.0); MCV 88.6 fL (80.0-97.0); Mean Platelet Volume 10.8 fL (9.5-12.2); Monocytes # (A) 0.48 X 10*3/uL (0.20-1.00); Monocytes % (A) 6.6 %; NRBC Per 100 WBC 0 /100 WBCS (0.0-0.0); Neutrophils # (A) 5.63 X 10*3/uL (1.80-7.70); Neutrophils % (A) 77.4 %; Platelet Count 278 X 10*3/uL (140-440); RBC 5.26 X 10*6/uL (4.10-5.20); RDW 14.9 % (11.5-14.5); WBC 7.28 X 10*3/uL (4.50-10.00)
[2021-09-09 14:45] LABS: % Iron Saturation 18.82 (12.00-45.00); African American GFR (CKD) 118.1 (60.0-200.0); Albumin 4.3 g/dL (3.8-4.9); Albumin/Globulin Ratio 1.87 (1.60-3.17); Anion Gap 15.1 mmol/L (10.00-18.00); BUN/Creat Ratio 10.5 Ratio (12.00-20.00); Blood Urea Nitrogen 6.3 mg/dL (9.0-27.0); Calcium 9.7 mg/dL (8.7-10.3); Carbon Dioxide 24.9 mmol/L (20.0-27.5); Globulin 2.3 g/dL (1.6-3.3); Non-African American GFR(CKD) 101.9 (60.0-200.0); Potassium 3.8 mmol/L (3.5-5.5); Total Bilirubin 0.3 mg/dL (0.30-1.20); Total Protein 6.6 g/dL (6.2-8.2)
== END | disposition home or self-care (01) ==
LOC: LABWHC1 08:24
PROVIDERS: ATTEND Student in an Organized Health Care Education/Training Program
DX: K50.812 Crohn's disease of both small and large intestine with intestinal obstruction (principal)
CPT/HCPCS: 36415; 80053; 82306; 82607; 82728; 83540; 83550; 85025

== ENCOUNTER → 2022-05-24 | Day surgery (SDC) | payer BC ==
[~2022-05-24] MED LIST changes: +GLUCAGON 1 MG/ML VIAL IM STA; -LACTATED RINGERS 1,000 ML IV SCH
[2022-05-24 08:30] VITALS: BP 113/80; PULSE 85; RESP 16; TEMP 98
--- NOTE | 2022-05-24 15:09 | MR ---
EXAMINATION TYPE: MR Enterography DATE OF EXAM: 05/24/2022 10:23 AM COMPARISON: CT abdomen pelvis 07/12/2015 CLINICAL INDICATION: Female 57 years old with a history of K50.80 CROHN'S DISEASE. TECHNIQUE: Standard multiplanar, multisequence imaging of the abdomen is performed without and with I V contrast, patient is injected with 1350 mL intravenous Gadavist gadolinium contrast. Oral NeuLumEX was given as per enterography protocol. FINDINGS: LOWER CHEST: No significant findings. ABDOMEN Motion limited exam Bowel: The small bowel distention is inadequate proximally. There is circumferential wall thickening of the terminal ileum which is located in the right upper quadrant. There is also evidence of mucosal hyperenhancement. Wall thickening measuring up to 9 mm. Extending circumferentially approximately 3. 6 cm. No evidence of obstruction. Appendix is within normal limits. Peritoneum: No evidence of pneumoperitoneum, free fluid, or adenop athy. Liver: Mild parenchymal signal dropout on chemical shift imaging out of phase sequence. Gallbladder and Bile ducts: Low signal gallstones layering in the gallbladder lumen. Common bile duct measuring up to 5 mm within normal limits. Pancreas: Pancreatic duct within normal limits. Spleen: Unremarkable. Adrenal glands: Unremarkable. Kidneys: Subcentimeter probable cortical renal cysts on the left. Bladder: Unremarkable. Reproductive: Endometrium appears thickened. Lymph Nodes: Vasculature: Unremarkable. No aortic aneurysm. Musculoskeletal: The osseous structures appear intact. There are postsurgical changes to the lower malcolm mbar spine. Abdominal wall: Ventral wall hernia containing loops of small bowel. No evidence of bowel obstruction . IMPRESSION: 1. Findings compatible with terminal ileum active Crohn's disease. No evidence of bowel obstruction. 2. Right inguinal hernia containing loops of small bowel. No evidence of obstruction or wall thicken ing. 3. Questionable endometrial thickening for a patient of postmenopausal age, further evaluation with pelvic ultrasound is recommended. 4. Mild hepatic steatosis.
== END ==
LOC: RADMRIMAIN 08:00
PROVIDERS: ATTEND Nurse Practitioner Family
DX: K50.80 Crohn's disease of both small and large intestine without complications (principal); K40.90 Unilateral inguinal hernia, without obstruction or gangrene, not specified as recurrent; K76.0 Fatty (change of) liver, not elsewhere classified
CPT/HCPCS: 96372; 72197; 74183; J1610; A9585

== ENCOUNTER 2022-06-25 10:51 | Day surgery (SDC) | payer BC ==
[2022-06-22 15:56] VITALS: BMI 27.4
[~2022-06-25 10:51] MED LIST changes: -GLUCAGON 1 MG/ML VIAL IM STA; +LACTATED RINGERS 1,000 ML IV SCH; +LIDOCAINE 1% (10MG/ML) FOR IV START INTRADERMA PRN
[2022-06-25 12:18] VITALS: RESP 16; TEMP 98.6
[2022-06-25] MEDS ORDERED: LIDOCAINE 2% INJ 20 MG/ML (2 ML VIAL) ONE (12:51)
[2022-06-25] MEDS ORDERED: PROPOFOL 10 MG/ML 20 ML VIAL IV ONE (12:51)
--- NOTE | 2022-06-25 13:11 | P.PCN ---
Date of Procedure: 06/25/22 Procedure(s) Performed: BRIEF HISTORY: Patient is a 57-year-old pleasant white female scheduled for an elective colonoscopy as a part of surveillance of long-standing history of Crohn's colitis diagnosed in 1996. She status post left colon resection for perforation in 2016. Last colonoscopy was in 2 years ago and was noted to have a stricture at the anastomosis at 20 cm from the anal verge. She is presently maintained on interview infusions every 8 weeks. She is in clinical remission. PROCEDURE PERFORMED: Colonoscopy with biopsies.. PREOPERATIVE DIAGNOSIS: Long-standing history of Crohn's colitis. IV sedation per Anesthesia. PROCEDURE: After informed consent was obtained, the patient, was brought into the endoscopy unit. IV sedation was administered by Anesthesia under continuous monitoring. Digital rectal examination was normal. Initially the Olympus CF-160 flexible video colonoscope was then inserted in the rectum, gradually advanced into the anastomosis located at 20 cm of the anal verge and the scope could not be advanced. The pediatric colonoscope was then introduced into the rectum and could not advance the scope through the anastomotic stricture. At this time an upper scope was used and the scope was gradually advanced to the stricture and into the cecum without any difficulty. Careful examination was performed as the scope was gradually being withdrawn. Ileocecal valve and the appendiceal orifice were visualized and appeared normal. Prep was excellent. Mucosa of the cecum, ascending colon appeared normal. Biopsies were done from this area. The anastomosis was located at 20 cm from the anal verge and superficial erosions were identified and biopsies were done from this area. Rectum appeared normal., . Retroflexion was performed in the rectum and no lesions were seen. The patient tolerated the procedure well. IMPRESSION: Stricture at the distal sigmoid anastomosis at 20 cm from the anal verge with superficial erosions status post biopsy Cecum right colon and rectum appeared normal RECOMMENDATIONS: Findings of this examination were discussed with the patient lesser family.. She was advised to continue with intravenous infusions every 8 weeks and follow with the biopsy results. If there is no evidence of discrete scheduled on a repeat colonoscopy in 2 years.
[2022-06-25 13:32] VITALS: BP 105/70; PULSE 86
== END 2022-06-25 14:12 | disposition home or self-care (01) ==
LOC: ORWHC2ENDO 10:51
PROVIDERS: ATTEND Internal Medicine Gastroenterology
DX: K50.10 Crohn's disease of large intestine without complications (principal); J44.9 Chronic obstructive pulmonary disease, unspecified; G35 Multiple sclerosis; Z87.891 Personal history of nicotine dependence; Z79.899 Other long term (current) drug therapy
CPT/HCPCS: 88305; 45380; J2704; J2001

== ENCOUNTER → 2022-11-08 | Outpatient (CLI) | payer BC ==
[2022-11-08 15:40] LABS: Basophils # (A) 0.03 X 10*3/uL (0.00-0.10); Basophils % (A) 0.6 %; Eosinophils # (A) 0.09 X 10*3/uL (0.04-0.35); Eosinophils % (A) 1.8 %; HCT 43.3 % (37.2-46.3); HGB 13.1 g/dL (12.0-15.0); Immature Grans, Automated 0.2 %; Lymphocytes # (A) 0.83 X 10*3/uL (0.90-5.00); Lymphocytes % (A) 16.8 %; MCH 29.2 pg (27.0-32.0); MCHC 30.3 g/dL (32.0-37.0); MCV 96.4 fL (80.0-97.0); Mean Platelet Volume 10.3 fL (9.5-12.2); Monocytes # (A) 0.34 X 10*3/uL (0.20-1.00); Monocytes % (A) 6.9 %; NRBC Per 100 WBC 0 /100 WBCS (0.0-0.0); Neutrophils # (A) 3.63 X 10*3/uL (1.80-7.70); Neutrophils % (A) 73.7 %; Platelet Count 268 X 10*3/uL (140-440); RBC 4.49 X 10*6/uL (4.10-5.20); RDW 13.1 % (11.5-14.5); WBC 4.93 X 10*3/uL (4.50-10.00)
[2022-11-08 15:49] LABS: African American GFR (CKD) 117.3 (60.0-200.0); Albumin 4.3 g/dL (3.8-4.9); Albumin/Globulin Ratio 2.05 (1.60-3.17); Anion Gap 11.2 mmol/L (10.00-18.00); BUN/Creat Ratio 15.67 Ratio (12.00-20.00); Blood Urea Nitrogen 9.4 mg/dL (9.0-27.0); Calcium 9.3 mg/dL (8.7-10.3); Carbon Dioxide 27.8 mmol/L (20.0-27.5); Globulin 2.1 g/dL (1.6-3.3); Non-African American GFR(CKD) 101.2 (60.0-200.0); Potassium 3.9 mmol/L (3.5-5.5); Total Bilirubin 0.3 mg/dL (0.30-1.20); Total Protein 6.4 g/dL (6.2-8.2)
== END | disposition home or self-care (01) ==
LOC: LABWHC1 09:48
PROVIDERS: ATTEND Nurse Practitioner Family
DX: K50.90 Crohn's disease, unspecified, without complications (principal)
CPT/HCPCS: 36415; 80053; 85025

== ENCOUNTER 2022-11-14 03:01 | Inpatient (IN) | payer BC, MEDICARE ==
[2022-11-14] MEDS ORDERED: SODIUM CHLORIDE 0.9% 1,000 ML IV STA ×2 (03:21→06:13)
[2022-11-14] MEDS ORDERED: PANTOPRAZOLE 40 MG/10 ML VIAL IVP STA (03:21)
[2022-11-14] MEDS ORDERED: ONDANSETRON 4 MG/2 ML VIAL IVP STA (03:21)
[2022-11-14] MEDS ORDERED: MORPHINE SULFATE 4 MG/ML SYRINGE IVP STA (03:22)
--- NOTE | 2022-11-14 03:32 | ED ---
General Adult HPI - General Chief complaint: Abdominal Pain Stated complaint: Abdominal Pain Time Seen by Provider: 11/14/22 03:22 Source: patient, RN notes reviewed, old records reviewed Mode of arrival: ambulatory Limitations: no limitations - History of Present Illness Initial comments: Patient is a 57-year-old female with past medical history remarkable for Crohn's disease, MS, history of bowel perforation requiring emergent colectomy with colostomy and reversal of colostomy. States last time this happened was somewhat similar to when she had a ruptured colon. Denies any chest pain or shortness of breath. Denies any fevers or chills. Denies any urinary complaints. States she has been having regular bowel movements. Endorses nausea as well as a episodes of emesis. Patient's emesis is nonbilious nonbloody. Pain began approximate 5 hours ago and is not subsided. States is mostly midepigastric region describes it as achy. States she still has her gallbladder. His no other acute complaints at this time. Presents for further evaluation.Denies any history of cardiac disease including stents or heart attacks. - Related Data Home Medications Medication Instructions Recorded Confirmed Multivitamins, Thera [Multivitamin] 1 tab PO DAILY 04/22/16 06/22/22 Balsalazide Disodium 2,250 mg PO TID 05/03/18 06/22/22 Calcium Carbonate [Calcium] 1,200 mg PO DAILY 05/03/18 06/22/22 Cholecalciferol [Vitamin D3] 5,000 unit PO DAILY 05/03/18 06/22/22 Citalopram Hydrobromide [CeleXA] 40 mg PO QAM 12/26/20 06/22/22 Ipratropium/Albuterol Sulfate 1 puff INHALATION QID 12/26/20 06/22/22 [Combivent Respimat Inhaler] Umeclidinium Brm/Vilanterol Tr 1 puff INHALATION DAILY 12/26/20 06/22/22 [Anoro Ellipta 62.5-25 Mcg INH] Baclofen [Lioresal] 10 mg PO BID 06/22/22 06/22/22 Entyvio 1 dose IV Q56D 06/22/22 06/22/22 Teriflunomide [Aubagio] 14 mg PO DAILY 06/22/22 06/22/22 Allergies Allergy/AdvReac Type Severity Reaction Status Date / Time No Known Allergies Allergy Verified 11/14/22 03:06 Review of Systems ROS Statement: Those systems with pertinent positive or pertinent negative responses have been documented in the HPI. Review of Systems: CONST: Denies fever EYES: Denies blurry vision ENT: Denies nasal congestion C/V: Denies Chest pain RESP: Denies shortness of breath GI: Endorses abdominal pain : Denies dysuria SKIN: Denies rash. MSK: Denies joint pain. NEURO: Denies headache ROS Other: All systems not noted in ROS Statement are negative. Past Medical History Past Medical History: Skin Disorder Additional Past Medical History / Comment(s): Crohn's disease, MS, Ulcerative Colitis, Eczema, History of Any Multi-Drug Resistant Organisms: None Reported Past Surgical History: Back Surgery, Bowel Resection, Tonsillectomy Additional Past Surgical History / Comment(s): bowel resection after injury with ruptured colon, had colostomy/ later colostomy reversal, lumbar fusion 2018, colonoscopies Past Anesthesia/Blood Transfusion Reactions: No Reported Reaction Past Psychological History: No Psychological Hx Reported Smoking Status: Current every day smoker Past Alcohol Use History: None Reported Past Drug Use History: None Reported - Past Family History Father Family Medical History: Cancer Additional Family Medical History / Comment(s): prostate Mother Family Medical History: No Reported History General Exam - General Exam Comments Initial Comments: General: Appears in mild distress. HEAD: Normal with no signs of head trauma. EYES: PERRLA, EOMI, conjunctiva normal, no discharge. ENT: Hearing grossly intact, normal oropharynx. RESPIRATORY: Clear breath sounds bilaterally. No wheezes, rales, or rhonchi. C/V: Regular rate and rhythm. S1 and S2 auscultated, no edema, peripheral pulses 2+ and intact throughout ABD: Abdomen soft, nondistended. Tender to palpation primarily in the epigastric region and superior periumbilical region. No guarding. No peritoneal signs. No rebound tenderness. EXT: Normal range of motion, no obvious deformity SKIN: No rashes or lesions observed on exposed skin. NEURO: Alert and oriented 4. Limitations: no limitations Course Vital Signs 11/14/22 03:03 Temperature 98.2 F Pulse Rate 92 Respiratory 18 Rate Blood Pressure 138/95 O2 Sat by Pulse 95 Oximetry Medical Decision Making - Medical Decision Making Was pt. sent in by a medical professional or institution (, OWEN, ORTHOPAEDIC PHYSICIAN ASSISTANT, urgent care, hospital, or snf...) When possible be specific @ -No Did you speak to anyone other than the patient for history (EMS, parent, family, police, friend...)? What history was obtained from this source @ -No Did you review nursing and triage notes (agree or disagree)? Why? @ -I reviewed and agree with nursing and triage notes Were old charts reviewed (outside hosp., previous admission, EMS record, old EKG, old radiological studies, urgent care reports/EKG's, snf records)? Report findings @ -Old charts reviewed including visits Dr. Carver's office including colonoscopy in 07/12. Appears the patient does have a history of a stricture at the anastomosis site. Differential Diagnosis (chest pain, altered mental status, abdominal pain women, abdominal pain men, vaginal bleeding, weakness, fever, dyspnea, syncope, headache, dizziness, GI bleed, back pain, seizure, CVA, palpatations, mental health, musculoskeletal)? @ -Differential Abdominal Pain Women: Appendicitis, Cholecystitis, diverticulosis, ischemic bowel, pancreatitis, hepatitis, UTI, gastroenteritis, AAA, incarcerated hernia, bowel obstruction, constipation, inflammatory bowel, hepatitis, peptic ulcer disease, splenic infarction, perforated viscus, vulvitis, ovarian torsion, PID, kidney stone, placenta abruption, this is not meant to be an all-inclusive list EKG interpreted by me (3pts min.). @ -As above X-rays interpreted by me (1pt min.). @ -Chest x-ray reveals no obvious acute cardiopulmonary process. CT interpreted by me (1pt min.). @ -CT abdomen and pelvis reveals findings concerning for a ventral hernia with small bowel loops contained within a small bowel obstruction. U/S interpreted by me (1pt. min.). @ -None done What testing was considered but not performed or refused? (CT, X-rays, U/S, labs)? Why? @ -None What meds were considered but not given or refused? Why? @ -None Did you discuss the management of the patient with other professionals (diamante pham i.e. , OWEN, ORTHOPAEDIC PHYSICIAN ASSISTANT, lab, RT, psych nurse, oncology social work, core driller helper, teacher, probation and parole officer, case operator)? Give summary @ -Discussed with the admitting surgeon, Dr. Gan who accepted the patient. Discussed NG tube and was in agreement with holding it for now as long patient does not require it. Also spoke with Dr. Haynes for medical consultation. He accepted consult. Was smoking cessation discussed for >3mins.? @ -No Was critical care preformed (if so, how long)? @ -No Were there social determinants of health that impacted care today? How? (Homelessness, low income, unemployed, alcoholism, drug addiction, transportation, low edu. Level, literacy, decrease access to med. care, [facility], rehab)? @ -No Was there de-escalation of care discussed even if they declined (Discuss DNR or withdrawal of care, Hospice)? DNR status @ -No What co-morbidities impacted this encounter? (DM, HTN, Smoking, COPD, CAD, Cancer, CVA, ARF, Chemo, Hep., AIDS, mental health diagnosis, sleep apnea, morbid obesity)? @ -Prior abdominal surgeries. History of Crohn's. Was patient admitted / discharged? Hospital course, mention meds given and route, prescriptions, significant lab abnormalities, going to OR and other pertinent info. @ -Based on the patient's presentation and physical exam, presents with abdominal pain. We'll obtain abdominal pain labs as well as cardiac labs. Vital signs within acceptable limits. Patient was in agreement this plan. She was symptomatic pretreated with IV fluids, Zofran, Protonix, morphine. We'll also obtain a CT abdomen and pelvis. Patient's labs are remarkable for an undetectable troponin. Mild hypokalemia at 3.3 which was replenished prior to results of CT imaging, with the remainder of the labs within acceptable limits including lactic acid within acceptable limits. EKG showed no signs of acute ischemia. Chest x-ray shows no acute cardiopulmonary process. CT imaging shows a ventral hernia with small bowel obstruction. Abdomen the patient on the results of her workup. She is resting comfortably at this time. Abdomen is longer as distended. I did recommend admission for evaluation by surgery and she was in agreement with this plan. We will hold off on an NG tube at this time as she is not distended, resting comfortable, not currently nauseous. We'll continue to monitor. She was in agreement this plan. She was empirically placed on IV Zosyn. I spoke with the on-call surgeon Dr. Gan who was in agreement with the plan accepted the admission. Medicine consult to Dr. Haynes of [facility], [place]. Patient made NPO. Undiagnosed new problem with uncertain prognosis? @ -No Drug Therapy requiring intensive monitoring for toxicity (Heparin, Nitro, Insulin, Cardizem)? @ -No Were any procedures done? @ -No Diagnosis/symptom? @ -Ventral hernia, small bowel obstruction Acute, or Chronic, or Acute on Chronic? @ -Acute Uncomplicated (without systemic symptoms) or Complicated (systemic symptoms)? @ -Complicated Side effects of treatment? @ -none Exacerbation, Progression, or Severe Exacerbation] @ -no Poses a threat to life or bodily function? @ -Yes Diagnosis/symptom? @ -Hypokalemia Acute, or Chronic, or Acute on Chronic? @ -Acute Uncomplicated (without systemic symptoms) or Complicated (systemic symptoms)? @ -Uncomplicated Side effects of treatment? @ -none Exacerbation, Progression, or Severe Exacerbation] @ -no Poses a threat to life or bodily function? @ -no - Lab Data Result diagrams: 11/14/22 03:28 11/14/22 03:28 Lab Results 11/14/22 11/14/22 11/14/22 Range/Units 03:28 03:28 03:28 WBC 10.3 (3.8-10.6) k/uL RBC 4.94 (3.80-5.40) m/uL Hgb 14.6 (11.4-16.0) gm/dL Hct 43.3 (34.0-46.0) % MCV 87.7 (80.0-100.0) fL MCH 29.6 (25.0-35.0) pg MCHC 33.8 (31.0-37.0) g/dL RDW 13.2 (11.5-15.5) % Plt Count 274 (150-450) k/uL MPV 7.6 Neutrophils % 89 % Lymphocytes % 6 % Monocytes % 3 % Eosinophils % 1 % Basophils % 0 % Neutrophils # 9.2 H (1.3-7.7) k/uL Lymphocytes # 0.6 L (1.0-4.8) k/uL Monocytes # 0.3 (0-1.0) k/uL Eosinophils # 0.1 (0-0.7) k/uL Basophils # 0.0 (0-0.2) k/uL PT 9.9 (9.0-12.0) sec INR 0.9 (<1.2) APTT 24.7 (22.0-30.0) sec Sodium 136 L (137-145) mmol/L Potassium 3.3 L (3.5-5.1) mmol/L Chloride 101 (98-107) mmol/L Carbon Dioxide 27 (22-30) mmol/L Anion Gap 8 mmol/L BUN 14 (7-17) mg/dL Creatinine 0.51 L (0.52-1.04) mg/dL Est GFR (CKD-EPI)AfAm >90 (>60 ml/min/1.73 sqM) Est GFR (CKD-EPI)NonAf >90 (>60 ml/min/1.73 sqM) Glucose 117 H (74-99) mg/dL Plasma Lactic Acid Carlos (0.7-2.0) mmol/L Calcium 9.3 (8.4-10.2) mg/dL Total Bilirubin 0.5 (0.2-1.3) mg/dL AST 41 H (14-36) U/L ALT 23 (4-34) U/L Alkaline Phosphatase 85 (38-126) U/L Troponin I (0.000-0.034) ng/mL Total Protein 6.9 (6.3-8.2) g/dL Albumin 4.2 (3.5-5.0) g/dL Amylase 49 (30-110) U/L Lipase 100 (23-300) U/L 11/14/22 11/14/22 Range/Units 03:28 03:28 WBC (3.8-10.6) k/uL RBC (3.80-5.40) m/uL Hgb (11.4-16.0) gm/dL Hct (34.0-46.0) % MCV (80.0-100.0) fL MCH (25.0-35.0) pg MCHC (31.0-37.0) g/dL RDW (11.5-15.5) % Plt Count (150-450) k/uL MPV Neutrophils % % Lymphocytes % % Monocytes % % Eosinophils % % Basophils % % Neutrophils # (1.3-7.7) k/uL Lymphocytes # (1.0-4.8) k/uL Monocytes # (0-1.0) k/uL Eosinophils # (0-0.7) k/uL Basophils # (0-0.2) k/uL PT (9.0-12.0) sec INR (<1.2) APTT (22.0-30.0) sec Sodium (137-145) mmol/L Potassium (3.5-5.1) mmol/L Chloride (98-107) mmol/L Carbon Dioxide (22-30) mmol/L Anion Gap mmol/L BUN (7-17) mg/dL Creatinine (0.52-1.04) mg/dL Est GFR (CKD-EPI)AfAm (>60 ml/min/1.73 sqM) Est GFR (CKD-EPI)NonAf (>60 ml/min/1.73 sqM) Glucose (74-99) mg/dL Plasma Lactic Acid Carlos 0.9 (0.7-2.0) mmol/L Calcium (8.4-10.2) mg/dL Total Bilirubin (0.2-1.3) mg/dL AST (14-36) U/L ALT (4-34) U/L Alkaline Phosphatase (38-126) U/L Troponin I <0.012 (0.000-0.034) ng/mL Total Protein (6.3-8.2) g/dL Albumin (3.5-5.0) g/dL Amylase (30-110) U/L Lipase (23-300) U/L - EKG Data -: EKG Interpreted by Me EKG Comments: 12-lead Electrocardiogram Interpretation Note EKG was reviewed and interpreted by myself. 12-lead ECG performed at 0324 is interpreted by me as revealing normal sinus rhythm at a rate of 85 beats per minute. [place] is normal. [place] interval is 132 ms, QRS duration is 93 ms, QTc is 409 ms.. Isolated T-wave inversion in lead V2. There were no acute ST or T wave abnormalities to suggest myocardial ischemia or injury. R wave progression across the precordium was satisfactory. By my interpretation this EKG is non- diagnostic for acute ischemia. Disposition Clinical Impression: Small bowel obstruction, Ventral hernia, Hypokalemia Disposition: ADMITTED IP TO THIS [facility] Condition: Stable Referrals: Christian Gutierrez MD [Primary Care Provider] - 1-2 days Time of Disposition: 06:06
[2022-11-14 03:57] LABS: Basophils % (A) 0 %; Eosinophils # (A) 0.1 k/uL (0-0.7); Eosinophils % (A) 1 %; HCT 43.3 % (34.0-46.0); HGB 14.6 gm/dL (11.4-16.0); Lymphocytes # (A) 0.6 k/uL (1.0-4.8); Lymphocytes % (A) 6 %; MCH 29.6 pg (25.0-35.0); MCHC 33.8 g/dL (31.0-37.0); MCV 87.7 fL (80.0-100.0); Mean Platelet Volume 7.6; Monocytes # (A) 0.3 k/uL (0-1.0); Monocytes % (A) 3 %; Neutrophils # (A) 9.2 k/uL (1.3-7.7); Neutrophils % (A) 89 %; Platelet Count 274 k/uL (150-450); RBC 4.94 m/uL (3.80-5.40); RDW 13.2 % (11.5-15.5); WBC 10.3 k/uL (3.8-10.6)
[2022-11-14 04:02] LABS: ALT 23 U/L (4-34); AST 41 U/L (14-36); African American GFR (CKD) >90 (>60 ml/min/1.73 sqM); Albumin 4.2 g/dL (3.5-5.0); Alkaline Phosphatase 85 U/L (38-126); Amylase 49 U/L (30-110); Anion Gap 8 mmol/L; Blood Urea Nitrogen 14 mg/dL (7-17); Calcium 9.3 mg/dL (8.4-10.2); Carbon Dioxide 27 mmol/L (22-30); Chloride 101 mmol/L (98-107); Glucose 117 mg/dL (74-99); Lipase 100 U/L (23-300); Non-African American GFR(CKD) >90 (>60 ml/min/1.73 sqM); Potassium 3.3 mmol/L (3.5-5.1); Sodium 136 mmol/L (137-145); Total Bilirubin 0.5 mg/dL (0.2-1.3); Total Protein 6.9 g/dL (6.3-8.2)
[2022-11-14 04:05] LABS: INR 0.9 (<1.2); Partial Thromboplastin Time 24.7 sec (22.0-30.0); Prothrombin Time 9.9 sec (9.0-12.0)
[2022-11-14] MEDS ORDERED: POTASSIUM CHLORIDE ER 20 MEQ TAB.ER PO STA (04:20)
--- NOTE | 2022-11-14 05:52 | CT ---
EXAM: CT Abdomen and Pelvis With Intravenous Contrast CLINICAL HISTORY: Abdominal pain, acute, generalized TECHNIQUE: Axial computed tomography images of the abdomen and pelvis with intravenous contrast. CTDI is 21.3 mGy and DLP is 906.2 mGy-cm. This CT exam was performed using one or more of the following dose reduction techniques: automated exposure control, adjustment of the mA and/or kV according to patient size, and/or use of iterative reconstruction technique. COMPARISON: CT dated 07/12/2015 FINDINGS: Lung bases: Unremarkable. No mass. No consolidation. ABDOMEN: Liver: Mild hepatomegaly and hepatic steatosis. No evidence of hepatic mass. Gallbladder and bile ducts: Unremarkable. No calcified stones. No ductal dilation. Pancreas: Unremarkable. No mass. No ductal dilation. Spleen: Unremarkable. No splenomegaly. Adrenals: Unremarkable. No mass. Kidneys and ureters: Subcentimeter hypodense lesion seen within the left kidney which is too small to characterize. Simple left renal cyst. No hydronephrosis. Stomach and bowel: Mild dilatation of the gastric lumen. Ventral anterior pelvic hernia with herniation of multiple loops of small bowel with associated small bowel dilatation. Transition point appears to be within the central pelvis seen on series 201 image 62. Wall thickening of the terminal ileum. No acute abnormalities visualized within the visualized colon. PELVIS: Appendix: No findings to suggest acute appendicitis. Bladder: Unremarkable. No mass. Reproductive: Unremarkable as visualized. ABDOMEN and PELVIS: Intraperitoneal space: Mild free fluid is seen within the bilateral paracolic gutters. No free air. Bones/joints: Status post posterior spinal fusion of L5 and S1 with intervertebral disc spacer in place at this level. Mild degenerative changes are seen in the spine and hips. No acute fracture. No dislocation. Soft tissues: See above. Vasculature: Unremarkable. No abdominal aortic aneurysm. Lymph nodes: Unremarkable. No enlarged lymph nodes. IMPRESSION: Ventral lower pelvic hernia containing loops of small bowel with associated small bowel obstruction.
--- NOTE | 2022-11-14 05:55 | XR ---
EXAM: XR Chest, 2 Views CLINICAL HISTORY: ITS.REASON XR Reason: abdominal pain TECHNIQUE: Frontal and lateral views of the chest. COMPARISON: No relevant prior studies available. FINDINGS: Lungs: Chronic lung markings seen bilaterally. Pleural space: Unremarkable. No pneumothorax. Heart: Unremarkable. No cardiomegaly. Mediastinum: Unremarkable. Bones/joints: Unremarkable. IMPRESSION: No acute cardiac disease.
[2022-11-14] MEDS ORDERED: ONDANSETRON 4 MG/2 ML VIAL IVP PRN (06:13)
[2022-11-14] MEDS ORDERED: NALOXONE 0.4 MG/ML 1 ML VIAL IV PRN ×2 (06:13→13:58)
[2022-11-14] MEDS ORDERED: PIPERACILLIN-TAZOBACTAM 3.375 GM in SODIUM CHLORIDE 0.9% 100 ML IVPB STA (06:14)
[2022-11-14] MEDS: HEPARIN SODIUM,PORCINE/PF 5,000 UNIT/0.5 ML SYRINGE SQ SCH ×2 (08:11→17:12)
[2022-11-14] MEDS: MORPHINE SULFATE 4 MG/ML SYRINGE IV PRN ×2 (08:11→15:38)
[2022-11-14 10:31] LABS: Appearance,Urine Clear (Clear); Bilirubin,Urine Negative (Negative); Blood,Urine Small (Negative); Color,Urine Yellow; Glucose,Urine (UA) Negative (Negative); Ketones,Urine 1+ (Negative); Leukocyte Esterase,Urine Negative (Negative); Nitrite,Urine Negative (Negative); Protein,Urine Trace (Negative); RBC,Urine 4 /hpf (0-5); Specific Gravity,Urine >1.050 (1.001-1.035); Squamous Epithelial Cell,Urine <1 /hpf (0-4); Urobilinogen,Urine <2.0 mg/dL (<2.0); WBC,Urine 3 /hpf (0-5)
--- NOTE | 2022-11-14 11:14 | P.CONS ---
History of Present Illness - Reason for Consult Consult date: 11/14/22 - History of Present Illness Patient is a 57-year-old female with history of Crohn's disease, MS, previous bowel perforation status post colostomy and reversal. Presented with abdominal pain. She claims that he started yesterday evening, on and off, worsened throughout the night, and she decided come to the hospital. She also had one bout of emesis. Denies any hematemesis or coffee-ground emesis. Had 1 small bowel movement today. Claims that the abdominal pain is persistent in the epigastric region, nonradiating, 10/10 at worse. It is sharp in nature, and often throbbing. She denies any recent changes to her medications, fevers, chills, or sick contacts. She sees GI for her Crohn's disease. Her MS has been progressive. She uses a walker for ambulation. Smokes half pack a day. Denies any alcohol use or illicit drug use. In the ED, temperature was 98.2, HR 92, RR 18, 138/95, 95% on RA. WBC 10.3, Hgb 14.6, Na 136, K 3.3, Cr 0.51, Lipase 100. CT abd/pel shows ventral lower pelvic hernia containing loops of small bowel with associated small bowel obstruction. EKG shows sinus rhythm. CXR no acute process. Patient admitted for SBO under surgical team. Sound physicians consulted for medical management. Pertinent positives and negatives as discussed in HPI, a complete review of systems was performed and all other systems are negative. Patient seen and examined at bedside. Vital signs reviewed General: nontoxic, no distress, appears at stated age Derm: warm, dry Head: atraumatic, normocephalic, symmetric Eyes: EOMI, no lid lag, anicteric sclera, pupils equal round reactive to light ENT: Nose and ears atraumatic Neck: No thyromegaly, supple Mouth: no lip lesion, mucus membranes moist Cardiovascular: S1S2 reg, no murmur, no edema Lungs: clear to auscultation bilateral, no rhonchi, no rales, no wheeze, no accessory muscle use Abdominal: soft, tender to palpation in epigastric region, no guarding, no appreciable organomegaly Ext: no gross muscle atrophy, muscle strength 4/5 in right lower extremity, no contractures Neuro: CN II-XII grossly intact Psych: Alert, oriented, appropriate affect Assessment/Plan: Active: Small bowel obstruction History of Crohn's disease History of prior bowel perforation status post colostomy and reversal Hypokalemia Nicotine dependence -Surgery following -Currently nothing by mouth -Continue continue IV fluids normal saline at 1 30 mL an hour -Zofran 4 mg IV every 8 hours needed -Pain control with 4 mg IV every 4 hours morphine as needed -DVT prophylaxis with subcu heparin -Potassium chloride 40 mEq given in the emergency -EKG independently interpreted, shows sinus rhythm, chest x-ray independently interpreted, shows no acute process -Home medications will be reconciled when confirmed -14 mg nicotine patch, counseled regarding smoking cessation Chronic: MS Crohn's disease COPD Thank you for allowing us to participate in the care of this pleasant patient. Do not hesitate to contact us with questions. Someone can be reached from the [facility] hospitalist group all hours of the day at [phone] or via [employer]. Past Medical History Past Medical History: Skin Disorder Additional Past Medical History / Comment(s): Crohn's disease, MS, Ulcerative Colitis, Eczema, History of Any Multi-Drug Resistant Organisms: None Reported Past Surgical History: Back Surgery, Bowel Resection, Tonsillectomy Additional Past Surgical History / Comment(s): bowel resection after injury with ruptured colon, had colostomy/ later colostomy reversal, lumbar fusion 2017, colonoscopies Past Anesthesia/Blood Transfusion Reactions: No Reported Reaction Past Psychological History: No Psychological Hx Reported Smoking Status: Current every day smoker Past Alcohol Use History: None Reported Past Drug Use History: None Reported - Past Family History Father Family Medical History: Cancer Additional Family Medical History / Comment(s): prostate Mother Family Medical History: No Reported History Medications and Allergies Home Medications Medication Instructions Recorded Confirmed Type Multivitamins, Thera [Multivitamin] 1 tab PO DAILY 04/22/16 06/22/22 History Balsalazide Disodium 2,250 mg PO TID 05/03/18 06/22/22 History Calcium Carbonate [Calcium] 1,200 mg PO DAILY 05/03/18 06/22/22 History Cholecalciferol [Vitamin D3] 5,000 unit PO DAILY 05/03/18 06/22/22 History Citalopram Hydrobromide [CeleXA] 40 mg PO QAM 12/26/20 06/22/22 History Ipratropium/Albuterol Sulfate 1 puff INHALATION QID 12/26/20 06/22/22 History [Combivent Respimat Inhaler] Umeclidinium Brm/Vilanterol Tr 1 puff INHALATION DAILY 12/26/20 06/22/22 History [Anoro Ellipta 62.5-25 Mcg INH] Baclofen [Lioresal] 10 mg PO BID 06/22/22 06/22/22 History Entyvio 1 dose IV Q56D 06/22/22 06/22/22 History Teriflunomide [Aubagio] 14 mg PO DAILY 06/22/22 06/22/22 History Allergies Allergy/AdvReac Type Severity Reaction Status Date / Time No Known Allergies Allergy Verified 11/14/22 03:06 Physical Exam Vitals: Vital Signs Temp Pulse Resp BP Pulse Ox 11/14/22 10:19 98.6 F 86 16 124/68 98 11/14/22 08:00 98.6 F 86 16 123/78 93 L 11/14/22 07:04 74 18 130/84 94 L 11/14/22 03:03 98.2 F 92 18 138/95 95 Intake and Output 11/13/22 11/14/22 11/14/22 22:59 06:59 14:59 Other: Weight 71.668 kg Results CBC & Chem 7: 11/14/22 03:28 11/14/22 03:28 Labs: Abnormal Lab Results - Last 24 Hours (Table) 11/14/22 11/14/22 11/14/22 Range/Units 03:28 03:28 03:28 Neutrophils # 9.2 H (1.3-7.7) k/uL Lymphocytes # 0.6 L (1.0-4.8) k/uL Sodium 136 L (137-145) mmol/L Potassium 3.3 L (3.5-5.1) mmol/L Creatinine 0.51 L (0.52-1.04) mg/dL Glucose 117 H (74-99) mg/dL AST 41 H (14-36) U/L Ur Specific [place] >1.050 H (1.001-1.035) Urine Protein Trace H (Negative) Urine Ketones 1+ H (Negative) Urine Blood Small H (Negative)
[2022-11-14] MEDS ORDERED: KETOROLAC 15 MG/ML 1 ML VIAL IVP PRN (13:58)
[2022-11-14] MEDS ORDERED: BENZOCAINE/MENTHOL LOZENG 1 EACH LOZENGE MUCOUS MEM PRN (13:58)
--- NOTE | 2022-11-14 14:12 | P.GSHP ---
History of Present Illness H&P Date: 11/14/22 Chief Complaint: Abdominal pain, ventral hernia and suspicion of small bowel obstruction Patient is a 57-year-old lady who presented to [facility] emergency department the early morning babysitter hours of 11/14/2022 with chief complaint of less than 24 hours of diffuse mid abdominal pain with progressive nausea and at least one bout of brown, nonbloody emesis. Most recent bowel movement was around 24 hours prior to onset of symptoms. She hasn't had similar issues in the past, has never been hospitalized for small bowel obstruction. She has a known history of Crohn's disease going back many years, follows with a portal administrator on an outpatient basis. She is maintained on Entyvio to good effect. Many years ago she tells me that she is suffered with a fall while ice skating, ended up with a ruptured colon and required what sounds like a segmental resection, initial diverting ostomy, subsequent reconstruction and reversal of ostomy. At present she is comfortable at rest, pain has improved but she still has some discomfort at the mid abdomen. Nausea similarly improved. She's had a hemodynamically stable and afebrile appearance since presentation to the ER. Urinalysis was negative for UTI. CBC was essentially normal and all counts. No leukocytosis, hemoglobin normal range. No evidence of iron deficiency on differential. Platelet count normal range at 274. INR normal range is 0.9. Conference of metabolic panel shows acceptable liver function studies, mild hyponatremia at 136, mild hypokalemia at 3.3, acceptable creatinine. Venous lactate was normal range at 0.9. Amylase and lipase within normal limits. Chest x-ray shows no acute findings. Computed tomography scan of abdomen and pelvis was obtained, images and official report were reviewed. There is an infraumbilical ventral hernia of moderate size and distended small bowel. The transition point is difficult to identify. The distal ileum does look relatively decompressed. There is scant air and stool seen throughout the colon. There is trace free fluid seen at the hernia sac, no free air. Stomach is distended with fluid. Patient's been admitted to my care for management of small bowel obstruction. - Review of Systems All systems: negative Past Medical History Past Medical History: Skin Disorder Additional Past Medical History / Comment(s): Crohn's disease, MS, Ulcerative Colitis, Eczema, History of Any Multi-Drug Resistant Organisms: None Reported Past Surgical History: Back Surgery, Bowel Resection, Tonsillectomy Additional Past Surgical History / Comment(s): bowel resection after injury with ruptured colon, had colostomy/ later colostomy reversal, lumbar fusion 2017, colonoscopies Past Anesthesia/Blood Transfusion Reactions: No Reported Reaction Past Psychological History: No Psychological Hx Reported Smoking Status: Current every day smoker Past Alcohol Use History: None Reported Past Drug Use History: None Reported - Past Family History Father Family Medical History: Cancer Additional Family Medical History / Comment(s): prostate Mother Family Medical History: No Reported History Medications and Allergies Home Medications Medication Instructions Recorded Confirmed Type Multivitamins, Thera [Multivitamin] 1 tab PO DAILY 04/22/16 11/14/22 History Calcium Carbonate [Calcium] 1,200 mg PO DAILY 05/03/18 11/14/22 History Cholecalciferol [Vitamin D3] 125 mcg PO DAILY 05/03/18 11/14/22 History Citalopram Hydrobromide [CeleXA] 40 mg PO DAILY 12/26/20 11/14/22 History Ipratropium/Albuterol Sulfate 1 puff INHALATION RT-QID 12/26/20 11/14/22 History [Combivent Respimat Inhaler] Umeclidinium Brm/Vilanterol Tr 1 puff INHALATION RT-DAILY 12/26/20 11/14/22 H istory [Anoro Ellipta 62.5-25 Mcg INH] Baclofen [Lioresal] 10 mg PO BID 06/22/22 11/14/22 History Entyvio 1 dose IV Q56D 06/22/22 11/14/22 History Teriflunomide [Aubagio] 14 mg PO DAILY 11/14/22 11/14/22 History Allergies Allergy/AdvReac Type Severity Reaction Status Date / Time No Known Allergies Allergy Verified 11/14/22 12:41 Surgical - Exam Osteopathic Statement: *. No significant issues noted on an osteopathic structural exam other than those noted in the History and Physical/Consult. Vital Signs Temp Pulse Resp BP Pulse Ox 98.2 F 92 18 138/95 95 11/14/22 03:03 11/14/22 03:03 11/14/22 03:03 11/14/22 03:03 11/14/22 03:03 - General well developed, well nourished - Eyes PERRL, normal ocular movement - ENT normal pinna, normal nares, normal mucosa, no hearing loss, no congestion - Neck no masses, trachea midline - Respiratory clear to auscultation - Cardiovascular Rhythm: regular - Abdomen Abdomen is soft with some mild to moderate mid abdominal tenderness to palpation. No guarding or rebound. No evidence of peritonitis. There is mild distention. The patient's infraumbilical ventral hernia is easily reducible. No skin changes overlying the hernia to suggest strangulation. Abdomen: soft - Neurologic normal coordination, normal sensation - Psychiatric oriented to time, oriented to person, oriented to place, speech is normal, memory intact Results - Labs 11/14/22 03:28 11/14/22 03:28 Abnormal Lab Results - Last 24 Hours (Table) 11/14/22 11/14/22 11/14/22 Range/Units 03:28 03:28 03:28 Neutrophils # 9.2 H (1.3-7.7) k/uL Lymphocytes # 0.6 L (1.0-4.8) k/uL Sodium 136 L (137-145) mmol/L Potassium 3.3 L (3.5-5.1) mmol/L Creatinine 0.51 L (0.52-1.04) mg/dL Glucose 117 H (74-99) mg/dL AST 41 H (14-36) U/L Ur Specific [place] >1.050 H (1.001-1.035) Urine Protein Trace H (Negative) Urine Ketones 1+ H (Negative) Urine Blood Small H (Negative) Diabetes panel 11/14/22 Range/Units 03:28 Sodium 136 L (137-145) mmol/L Potassium 3.3 L (3.5-5.1) mmol/L Chloride 101 (98-107) mmol/L Carbon Dioxide 27 (22-30) mmol/L BUN 14 (7-17) mg/dL Creatinine 0.51 L (0.52-1.04) mg/dL Glucose 117 H (74-99) mg/dL Calcium 9.3 (8.4-10.2) mg/dL AST 41 H (14-36) U/L ALT 23 (4-34) U/L Alkaline Phosphatase 85 (38-126) U/L Total Protein 6.9 (6.3-8.2) g/dL Albumin 4.2 (3.5-5.0) g/dL Calcium panel 11/14/22 Range/Units 03:28 Calcium 9.3 (8.4-10.2) mg/dL Albumin 4.2 (3.5-5.0) g/dL Pituitary panel 11/14/22 Range/Units 03:28 Sodium 136 L (137-145) mmol/L Potassium 3.3 L (3.5-5.1) mmol/L Chloride 101 (98-107) mmol/L Carbon Dioxide 27 (22-30) mmol/L BUN 14 (7-17) mg/dL Creatinine 0.51 L (0.52-1.04) mg/dL Glucose 117 H (74-99) mg/dL Calcium 9.3 (8.4-10.2) mg/dL Adrenal panel 11/14/22 Range/Units 03:28 Sodium 136 L (137-145) mmol/L Potassium 3.3 L (3.5-5.1) mmol/L Chloride 101 (98-107) mmol/L Carbon Dioxide 27 (22-30) mmol/L BUN 14 (7-17) mg/dL Creatinine 0.51 L (0.52-1.04) mg/dL Glucose 117 H (74-99) mg/dL Calcium 9.3 (8.4-10.2) mg/dL Total Bilirubin 0.5 (0.2-1.3) mg/dL AST 41 H (14-36) U/L ALT 23 (4-34) U/L Alkaline Phosphatase 85 (38-126) U/L Total Protein 6.9 (6.3-8.2) g/dL Albumin 4.2 (3.5-5.0) g/dL - Imaging Chest x-ray: report reviewed, image reviewed CT scan - abdomen: report reviewed, image reviewed CT scan - pelvis: report reviewed, image reviewed Assessment and Plan Assessment: 57-year-old lady with for what appeared to be partial small bowel obstruction in the setting of previous abdominal exploration, segmental colectomy, diverting ostomy and follow-up reconstruction and reversal of ostomy. Reducible incisional hernia. Obstruction likely relating to intra-abdominal adhesions. No clear transition point seen on CT. Hemodynamically stable, no evidence of sepsis, no evidence of peritonitis on exam. History of Crohn's disease, maintained on Entyvio. Plan: Patient's been admitted my care for initial nonoperative management of suspected adhesive small bowel obstruction. Place nasogastric tube and maintained a moderate intermittent suction. Initial bowel rest and IV fluids. No indication for antibiotics. She was advised that if she doesn't show clinical improvement over the next 72 hours or so we may need to entertain abdominal exploration, lysis of adhesions and ventral hernia repair. If we can get the obstruction to clear nonoperatively she may consider an outpatient incisional hernia repair and lysis of intra-abdominal adhesions to be performed on an elective basis. Time with Patient: Greater than 30
[2022-11-14] MEDS: NICOTINE 14MG/24HR PATCH TRANSDERM SCH (14:31)
[2022-11-14] MEDS ORDERED: PIPERACILLIN-TAZOBACTAM 3.375 GM in SODIUM CHLORIDE 0.9% 100 ML IVPB SCH (16:00)
[2022-11-14] MEDS: LACTATED RINGERS 1,000 ML IV SCH (17:12)
--- NOTE | 2022-11-14 18:03 | XR ---
EXAMINATION TYPE: XR chest 1V confirm line plcmt DATE OF EXAM: 11/14/2022 5:56 PM COMPARISON: Chest x-ray 11/14/2022 TECHNIQUE: XR chest 1V confirm line plcmt . CLINICAL INDICATION:Female, 57 years old with history of confirm NG tube placement; FINDINGS: Lungs/Pleura: There is no evidence of pleural effusion, focal consolidation, or pneumothorax. Pulmonary vascularity: Unremarkable. Heart/mediastinum: Cardiomediastinal silhouette is unremarkable. Musculoskeletal: No acute osseous pathology. Lines/Tubes: Nasogastric tube with its distal tip and side-port projecting under the diaphragm. IMPRESSION: Interval placement of nasogastric tube which is in appropriate position. No acute cardiopulmonary pro cess.
[2022-11-15] MEDS: HEPARIN SODIUM,PORCINE/PF 5,000 UNIT/0.5 ML SYRINGE SQ SCH ×4 (00:12→23:57)
[2022-11-15] MEDS: LACTATED RINGERS 1,000 ML IV SCH ×3 (00:12→21:43)
--- NOTE | 2022-11-15 09:50 | P.PN ---
Subjective Progress Note Date: 11/15/22 Principal diagnosis: Small bowel obstruction, reducible ventral hernia, history of Crohn's disease, suspected intra-abdominal adhesions Patient seen and examined at bedside. Feeling much better today than yesterday. Abdominal pain has subsided. No complaints of nausea or emesis. NG tube remains in place with around 600 mL of dark aspirate overnight is starting to clear up and the tubing. She had a large bowel movement this morning, admits to flatus, feeling hungry. She's had a hemodynamically stable, afebrile appearance over night. Objective - Vital Signs Vital signs: Vital Signs Temp 98.1 F 11/15/22 08:00 Pulse 92 11/15/22 08:00 Resp 17 11/15/22 08:00 BP 136/83 11/15/22 08:00 Pulse Ox 93 L 11/15/22 08:00 FiO2 Intake & Output 11/14/22 11/15/22 11/15/22 18:59 06:59 18:59 Output Total 10 500 Balance -10 -500 Weight 71.668 kg Output: Gastric Drainage 10 500 Other: Voiding Method Toilet # Voids 2 - Constitutional General appearance: Present: average body habitus - EENT Eyes: Present: PERRLA ENT: Present: hearing grossly normal, NA/AT - Respiratory Respiratory: bilateral: CTA - Cardiovascular Rhythm: regular - Gastrointestinal Gastrointestinal Comment(s): Abdomen soft, nontender to palpation, no guarding rebound or distention. Incisional hernia remains reducible. Exam is improved compared to yesterday. Exam is entirely benign, no evidence of peritonitis. Distention has resolved. - Neurologic Neurologic: Present: CNII-XII intact - Psychiatric Psychiatric: Present: A&O x's 3, appropriate affect, intact judgment & insight - Labs CBC & Chem 7: 11/14/22 03:28 11/14/22 03:28 Labs: Abnormal Lab Results - Last 24 Hours (Table) 11/14/22 Range/Units 03:28 Ur Specific [place] >1.050 H (1.001-1.035) Urine Protein Trace H (Negative) Urine Ketones 1+ H (Negative) Urine Blood Small H (Negative) Assessment and Plan Assessment: 57-year-old lady with for what appeared to be partial small bowel obstruction in the setting of previous abdominal exploration, segmental colectomy, diverting ostomy and follow-up reconstruction and reversal of ostomy. Reducible inci sional hernia. Obstruction likely relating to intra-abdominal adhesions. Clinically resolving. History of Crohn's disease, maintained on Entyvio. Plan: Nasogastric tube removed at bedside. Advance to clear liquids as tolerated today. If she has no issues overnight will anticipate advancing her diet tomorrow. She may be ready for discharge home tomorrow afternoon at the earliest. She was advised that she should follow-up with the surgeon of her choosing on an outpatient basis to see about getting this incisional hernia repaired on an elective outpatient basis. If she wishes she may follow up with me in the office the week of December 06. Time with Patient: Greater than 30
[2022-11-15] MEDS: NICOTINE 14MG/24HR PATCH TRANSDERM SCH (09:56)
[2022-11-15 10:25] LABS: Basophils % (A) 0 %; Eosinophils # (A) 0.2 k/uL (0-0.7); Eosinophils % (A) 2 %; HCT 43.1 % (34.0-46.0); HGB 14.3 gm/dL (11.4-16.0); Lymphocytes # (A) 0.8 k/uL (1.0-4.8); Lymphocytes % (A) 10 %; MCH 30.5 pg (25.0-35.0); MCHC 33.2 g/dL (31.0-37.0); MCV 91.7 fL (80.0-100.0); Mean Platelet Volume 7.5; Monocytes # (A) 0.4 k/uL (0-1.0); Monocytes % (A) 4 %; Neutrophils # (A) 6.6 k/uL (1.3-7.7); Neutrophils % (A) 82 %; Platelet Count 242 k/uL (150-450); RDW 12.8 % (11.5-15.5)
[2022-11-15 10:35] LABS: African American GFR (CKD) >90 (>60 ml/min/1.73 sqM); Anion Gap 5 mmol/L; Blood Urea Nitrogen 11 mg/dL (7-17); Calcium 8.2 mg/dL (8.4-10.2); Carbon Dioxide 26 mmol/L (22-30); Chloride 106 mmol/L (98-107); Glucose 78 mg/dL (74-99); Non-African American GFR(CKD) >90 (>60 ml/min/1.73 sqM); Potassium 3.6 mmol/L (3.5-5.1); Sodium 137 mmol/L (137-145)
--- NOTE | 2022-11-15 11:22 | P.PN ---
Subjective Progress Note Date: 11/15/22 Subjective: Patient seen and examined at bedside. No acute events overnight. Currently has an NG tube in place. Claims that she had one bowel movement today. Denies any significant abdominal pain. Denies any urinary complaints. Pertinent positives and negatives as discussed above, a complete review of systems was performed and all other systems are negative. Vitals Signs Reviewed. General: nontoxic, no distress, appears at stated age Derm: warm, dry Head: atraumatic, normocephalic, symmetric Eyes: EOMI, no lid lag, anicteric sclera Mouth: no lip lesion, mucus membranes moist Cardiovascular: S1S2 reg, no murmur Lungs: CTA bilateral, no rhonchi, no rales , no accessory muscle use Abdominal: soft, mild tender to palpation in epigastric region, no guarding, no appreciable organomegaly, NG tube in place Ext: no gross muscle atrophy, no edema, no contractures Neuro: CN II-XI grossly intact, no focal neuro deficits Psych: Alert, oriented, appropriate affect Data Reviewed Today: Pertinent Labs: WBC 8, hemoglobin 14.3, potassium 3.6, creatinine 0.52 Imaging: None today Assessment and Plan: Active: Small bowel obstruction, resolving History of Crohn's disease History of prior bowel perforation status post colostomy and reversal Hypokalemia, resolved Nicotine dependence -Surgery note reviewed, NG tube removed, started on clear liquids, likely due to advanced diet tomorrow and discharge -Okay to continue lactated Ringer's 100 mL an hour -Zofran 4 mg IV every 8 hours needed -Pain control with 4 mg IV every 4 hours morphine as needed -DVT prophylaxis with subcu heparin -Home medications reconciled -14 mg nicotine patch, counseled regarding smoking cessation Chronic: MS Crohn's disease COPD Thank you for allowing us to participate in the care of this pleasant patient. Do not hesitate to contact us with questions. Someone can be reached from the [facility] hospitalist group all hours of the day at [phone] or via perfect serve. Objective - Vital Signs Vital signs: Vital Signs Temp 98.1 F 11/15/22 08:00 Pulse 92 11/15/22 08:00 Resp 17 11/15/22 08:00 BP 136/83 11/15/22 08:00 Pulse Ox 93 L 11/15/22 08:00 FiO2 Intake & Output 11/14/22 11/15/22 11/15/22 18:59 06:59 18:59 Output Total 10 500 Balance -10 500 Weight 71.668 kg Output: Gastric Drainage 10 500 Other: Voiding Method Toilet # Voids 2 - Labs CBC & Chem 7: 11/15/22 10:07 11/15/22 10:07 Labs: Abnormal Lab Results - Last 24 Hours (Table) 11/15/22 11/15/22 Range/Units 10:07 10:07 Lymphocytes # 0.8 L (1.0-4.8) k/uL Calcium 8.2 L (8.4-10.2) mg/dL
[2022-11-15] MEDS: BACLOFEN 10 MG TAB PO SCH ×2 (12:31→21:43)
[2022-11-15] MEDS: CITALOPRAM HYDROBROMIDE 20 MG TAB PO SCH (12:31)
[2022-11-15] MEDS: Teriflunomide [Aubagio] 14 MG Tablet PO SCH (12:37)
[2022-11-15] MEDS: IPRATROPIUM-ALBUTEROL 3 ML NEB INHALATION SCH ×3 (16:21→21:20)
[2022-11-15 20:15] VITALS: RESP 16
[2022-11-15] MEDS: FORMOTEROL FUMARATE 20 MCG/2 ML NEBU INHALATION SCH (21:20)
[2022-11-16] MEDS: LACTATED RINGERS 1,000 ML IV SCH (05:51)
[2022-11-16] MEDS: NICOTINE 14MG/24HR PATCH TRANSDERM SCH (07:35)
[2022-11-16] MEDS: Teriflunomide [Aubagio] 14 MG Tablet PO SCH (07:35)
[2022-11-16] MEDS: HEPARIN SODIUM,PORCINE/PF 5,000 UNIT/0.5 ML SYRINGE SQ SCH (07:47)
[2022-11-16] MEDS: CITALOPRAM HYDROBROMIDE 20 MG TAB PO SCH (07:49)
[2022-11-16] MEDS: BACLOFEN 10 MG TAB PO SCH (07:50)
[2022-11-16 07:53] VITALS: BP 122/79; TEMP 97.9
[2022-11-16] MEDS: FORMOTEROL FUMARATE 20 MCG/2 ML NEBU INHALATION SCH (08:26)
[2022-11-16] MEDS: IPRATROPIUM-ALBUTEROL 3 ML NEB INHALATION SCH ×2 (08:26→11:35)
--- NOTE | 2022-11-16 08:28 | P.DS ---
Providers Date of admission: 11/14/22 06:15 Expected date of discharge: 11/16/22 Attending physician: Tyson Gan, DO Consults: 11/14/22 06:15 Consult Physician Routine Consulting Provider: Hyacinth Haynes Consult Reason/Comments: medical management Do you want consulting provider notified?: Already Contacted Primary care physician: Christian Gutierrez MD Hospital Course: Patient was admitted to my care from the emergency department for initial management of what appeared to be small bowel obstruction. She was transferred to the medical surgical floor, nasogastric tube was placed and she did well over the course of hers today. Her obstruction seemed to clear in short order with IV fluids, bowel rest and nasogastric decompression. Her ventral hernia remained reducible. She had a hemodynamically stable and afebrile appearance over the course of her stay. She was advanced to clear liquids without incident. On date of discharge she had no pain, no complaints of nausea or vomiting, had resumption of bowel function. She was discharged home with instructions to follow with me in the office the week of December 06 and stick with a low residue diet for about 2 weeks. She was advised that at some point she should consider an elective ventral hernia repair as this issue will only continue to get worse slowly over time and the bigger against the morbid challen ge will be to fix. I suspect that the hernia was not the primary cause of her obstruction however. My underlying suspicion is that this is due to intra- abdominal adhesions placed in the appearance of her CT. She should continue with her scheduled outpatient treatment routine for Crohn's disease without interruption. She does not require antibiotics or prescription pain medications. Assessment: Small bowel obstruction, reducible ventral hernia, history of Crohn's disease, suspected intra-abdominal adhesions. Patient Condition at Discharge: Stable Plan - Discharge Summary Discharge Rx Participant: No New Discharge Prescriptions: No Action Multivitamins, Thera [Multivitamin] 1 tab PO DAILY Cholecalciferol [Vitamin D3] 125 mcg PO DAILY Calcium Carbonate [Calcium] 1,200 mg PO DAILY Citalopram Hydrobromide [CeleXA] 40 mg PO DAILY Ipratropium/Albuterol Sulfate [Combivent Respimat Inhaler] 1 puff INHALATION RT-QID Teriflunomide [Aubagio] 14 mg PO DAILY Umeclidinium Brm/Vilanterol Tr [Anoro Ellipta 62.5-25 Mcg INH] 1 puff INHALATION RT-DAILY Baclofen [Lioresal] 10 mg PO BID Entyvio 1 dose IV Q56D Discharge Medication List Multivitamins, Thera [Multivitamin] 1 tab PO DAILY 04/22/16 [History] Calcium Carbonate [Calcium] 1,200 mg PO DAILY 05/03/18 [History] Cholecalciferol [Vitamin D3] 125 mcg PO DAILY 05/03/18 [History] Citalopram Hydrobromide [CeleXA] 40 mg PO DAILY 12/26/20 [History] Ipratropium/Albuterol Sulfate [Combivent Respimat Inhaler] 1 puff INHALATION RT- QID 12/26/20 [History] Umeclidinium Brm/Vilanterol Tr [Anoro Ellipta 62.5-25 Mcg INH] 1 puff INHALATION RT-DAILY 12/26/20 [History] Baclofen [Lioresal] 10 mg PO BID 06/22/22 [History] Entyvio 1 dose IV Q56D 06/22/22 [History] Teriflunomide [Aubagio] 14 mg PO DAILY 11/14/22 [History] Follow up Appointment(s)/Referral(s): Christian Gutierrez MD [Primary Care Provider] - 1-2 days Tyson Gan DO [Doctor of Osteopathic Medicine] - 3 Weeks Discharge Disposition: HOME SELF-CARE
[2022-11-16 08:47] VITALS: PULSE 76
[2022-11-16] MEDS ORDERED: CHOLECALCIFEROL 125 MCG (5000 IU) TABLET PO SCH (09:00)
[2022-11-16] MEDS ORDERED: MULTIVITAMINS, THERA 1 EACH TAB PO SCH (09:00)
[2022-11-16] MEDS ORDERED: CALCIUM CARBONATE 500 MG CHEWABLE PO SCH (09:00)
--- NOTE | 2022-11-16 10:43 | P.PN ---
Subjective Progress Note Date: 11/16/22 Subjective: Patient seen and examined at bedside. No acute events overnight. Gen: awake, alert HEENT: normocephalic, atraumatic, good hearing acuity, moist mucous membranes Resp: good air exchange, breathing comfortably with no accessory muscle use CVS: good distal perfusion x 4, GI: soft, NTTP, ND : no SPT, no CVAT, bradley catheter not present MSK: no pitting edema, no clubbing Neuro: non-focal, moving all extremities Psych: cooperative, euthymic mood Assessment: Small bowel obstruction, resolving History of Crohn's disease History of prior bowel perforation status post colostomy and reversal Hypokalemia, resolved Nicotine dependence MS Crohn's disease COPD Plan: Patient is medically cleared for discharge. Discharge medication reconciliation was addressed Patient should follow up with primary care physician Objective - Vital Signs Vital signs: Vital Signs Temp 97.9 F 11/16/22 07:52 Pulse 76 11/16/22 08:47 Resp 16 11/16/22 07:52 BP 122/79 11/16/22 07:52 Pulse Ox 93 L 11/16/22 07:52 FiO2 Intake & Output 11/15/22 11/16/22 11/16/22 18:59 06:59 18:59 Intake Total 2059 Balance 2059 Intake: Intake, IV Titration 1100 Amount Lactated Ringers 1,000 ml 1100 @ 100 mls/hr IV .Q10H [facility] Rx#:[id number] Oral 960 Other: Voiding Method Toilet # Voids 1 3 - Labs CBC & Chem 7: 11/15/22 10:07 11/15/22 10:07 Labs: Microbiology - Last 24 Hours (Table) 11/14/22 06:55 Blood Culture - Preliminary Blood 11/14/22 07:04 Blood Culture - Preliminary Blood
[2022-11-16 10:58] LABS: Basophils # (A) 0.03 X 10*3/uL (0.00-0.10); Basophils % (A) 0.5 %; Eosinophils # (A) 0.12 X 10*3/uL (0.04-0.35); Eosinophils % (A) 2.2 %; HCT 37.4 % (37.2-46.3); HGB 12.1 g/dL (12.0-15.0); Immature Grans, Automated 0.2 %; Lymphocytes # (A) 0.88 X 10*3/uL (0.90-5.00); Lymphocytes % (A) 16.1 %; MCH 29.7 pg (27.0-32.0); MCHC 32.4 g/dL (32.0-37.0); MCV 91.9 fL (80.0-97.0); Mean Platelet Volume 9.9 fL (9.5-12.2); Monocytes # (A) 0.37 X 10*3/uL (0.20-1.00); Monocytes % (A) 6.8 %; NRBC Per 100 WBC 0 /100 WBCS (0.0-0.0); Neutrophils # (A) 4.05 X 10*3/uL (1.80-7.70); Neutrophils % (A) 74.2 %; Platelet Count 212 X 10*3/uL (140-440); RBC 4.07 X 10*6/uL (4.10-5.20); RDW 12.9 % (11.5-14.5); WBC 5.46 X 10*3/uL (4.50-10.00)
[2022-11-16 11:11] LABS: Albumin 3.6 g/dL (3.8-4.9); Albumin/Globulin Ratio 1.89 (1.60-3.17); Anion Gap 9.8 mmol/L (10.00-18.00); Blood Urea Nitrogen 3.2 mg/dL (9.0-27.0); Calcium 8.7 mg/dL (8.7-10.3); Carbon Dioxide 27.2 mmol/L (20.0-27.5); Globulin 1.9 g/dL (1.6-3.3); Non-African American GFR(CKD) 115.6 (60.0-200.0); Potassium 3.7 mmol/L (3.5-5.5); Total Bilirubin 0.3 mg/dL (0.30-1.20); Total Protein 5.5 g/dL (6.2-8.2)
== END 2022-11-16 11:25 | disposition home or self-care (01) | DRG 389 ==
LOC: EC 03:01 → 4SSUR 06:15
PROVIDERS: ADMIT Surgery; ATTEND Surgery
PROC: 0D9670Z Drainage of Stomach with Drainage Device, Via Natural or Artificial Opening (ICD-10-PCS; principal; 2022-11-14)
DX: K56.50 Intestinal adhesions [bands], unspecified as to partial versus complete obstruction (principal); E87.1 Hypo-osmolality and hyponatremia; K50.90 Crohn's disease, unspecified, without complications; G35 Multiple sclerosis; J44.9 Chronic obstructive pulmonary disease, unspecified; E87.6 Hypokalemia; K43.2 Incisional hernia without obstruction or gangrene; L30.9 Dermatitis, unspecified; F17.210 Nicotine dependence, cigarettes, uncomplicated; Z71.6 Tobacco abuse counseling; Z79.899 Other long term (current) drug therapy; Z98.1 Arthrodesis status
CPT/HCPCS: 36415; 71046; 74177; 80048; 80053; 81001; 82150; 83605; 83690; 84484; 85025; 85610; 85730; 87040; 93005; 94640; 96361; 96365; 96366; 96372; 96375; 99285

== ENCOUNTER 2022-12-29 16:51 | Emergency (ER) | payer BC, MEDICARE ==
[2022-12-29 16:55] VITALS: RESP 18; TEMP 98.2
[2022-12-29 21:07] LABS: Basophils % (A) 0 %; Eosinophils # (A) 0.2 k/uL (0-0.7); Eosinophils % (A) 2 %; HCT 43.2 % (34.0-46.0); HGB 14.2 gm/dL (11.4-16.0); Lymphocytes # (A) 1.4 k/uL (1.0-4.8); Lymphocytes % (A) 22 %; MCHC 32.9 g/dL (31.0-37.0); MCV 91.2 fL (80.0-100.0); Mean Platelet Volume 7.4; Monocytes # (A) 0.4 k/uL (0-1.0); Monocytes % (A) 6 %; Neutrophils # (A) 4.5 k/uL (1.3-7.7); Neutrophils % (A) 68 %; Platelet Count 269 k/uL (150-450); RBC 4.74 m/uL (3.80-5.40); RDW 12.9 % (11.5-15.5); WBC 6.5 k/uL (3.8-10.6)
[2022-12-29 21:11] LABS: ALT 28 U/L (4-34); AST 34 U/L (14-36); African American GFR (CKD) >90 (>60 ml/min/1.73 sqM); Alkaline Phosphatase 96 U/L (38-126); Amylase 44 U/L (30-110); Anion Gap 9 mmol/L; Blood Urea Nitrogen 14 mg/dL (7-17); Carbon Dioxide 26 mmol/L (22-30); Chloride 105 mmol/L (98-107); Glucose 90 mg/dL (74-99); Lipase 103 U/L (23-300); Non-African American GFR(CKD) >90 (>60 ml/min/1.73 sqM); Potassium 3.6 mmol/L (3.5-5.1); Sodium 140 mmol/L (137-145); Total Bilirubin 0.3 mg/dL (0.2-1.3); Total Protein 6.7 g/dL (6.3-8.2)
[2022-12-29] MEDS ORDERED: ONDANSETRON 4 MG/2 ML VIAL IVP STA (21:51)
[2022-12-29] MEDS ORDERED: SODIUM CHLORIDE 0.9% 1,000 ML IV STA (21:51)
[2022-12-29] MEDS ORDERED: PANTOPRAZOLE 40 MG/10 ML VIAL IVP STA (21:51)
[2022-12-29] MEDS ORDERED: KETOROLAC 15 MG/ML 1 ML VIAL IVP STA (21:51)
--- NOTE | 2022-12-29 22:25 | ED ---
General Adult HPI - General Chief complaint: Abdominal Pain Stated complaint: abd pain Time Seen by Provider: 12/29/22 21:15 Source: patient, RN notes reviewed, old records reviewed Mode of arrival: ambulatory Limitations: no limitations - History of Present Illness Initial comments: Patient is a 57-year-old female with past history remarkable for Crohn's disease status post abdominal surgeries for colon resections, with a chronic large ventral hernia who presents emergency Department complaining of abdominal pain. This is typical for her hernia pain. Has been seen here previously for it. States she is currently trying to arrange outpatient follow-up with a specialist with Dr. Castellanos sending out a referral. She states she has had intermittent abdominal discomfort over the last few days. It is not the most severe it has been when she had a previous obstruction but she wanted to get out of bed and come get evaluated. Is still passing gas. Is still having bowel movements. Endorses intermittent nausea. had an episode of emesis with diarrhea the other day. This is not recurred. Denies any fevers or chills. Has no urinary complaints. Denies vaginal discharge or bleeding. Denies any chest pain or shortness of breath. Presents for further evaluation at this time. CT pain as a 4-5 out of 10 at this time. Located in the epigastric region and over the ventral hernia. - Related Data Home Medications Medication Instructions Recorded Confirmed Multivitamins, Thera [Multivitamin 1 tab PO DAILY 04/22/16 11/14/22 (formulary)] Calcium Carbonate [Calcium] 1,200 mg PO DAILY 05/03/18 11/14/22 Cholecalciferol [Vitamin D3 (25 125 mcg PO DAILY 05/03/18 11/14/22 Mcg = 1000 Iu)] Citalopram Hydrobromide [CeleXA] 40 mg PO DAILY 12/26/20 11/14/22 Ipratropium/Albuterol Sulfate 1 puff INHALATION RT-QID 12/26/20 11/14/22 [Combivent Respimat Inhaler] Umeclidinium Brm/Vilanterol Tr 1 puff INHALATION RT-DAILY 12/26/20 11/14/22 [Anoro Ellipta 62.5-25 Mcg INH] Baclofen [Lioresal] 10 mg PO BID 06/22/22 11/14/22 Entyvio 1 dose IV Q56D 06/22/22 11/14/22 Teriflunomide [Aubagio] 14 mg PO DAILY 11/14/22 11/14/22 Previous Rx's Medication Instructions Recorded Famotidine [Pepcid] 20 mg PO DAILY 7 Days #7 tablet 12/29/22 Ondansetron Odt [Zofran Odt] 4 mg PO Q8HR PRN 3 Days #9 tab 12/29/22 Allergies Allergy/AdvReac Type Severity Reaction Status Date / Time No Known Allergies Allergy Verified 12/29/22 16:55 Review of Systems ROS Statement: Those systems with pertinent positive or pertinent negative responses have been documented in the HPI. Review of Systems: CONST: Denies fever EYES: Denies blurry vision ENT: Denies nasal congestion C/V: Denies Chest pain RESP: Denies shortness of breath GI: Endorses abdominal pain : Denies dysuria SKIN: Denies rash. MSK: Denies joint pain. NEURO: Denies headache ROS Other: All systems not noted in ROS Statement are negative. Past Medical History Past Medical History: Skin Disorder Additional Past Medical History / Comment(s): Crohn's disease, MS, Ulcerative Colitis, Eczema, History of Any Multi-Drug Resistant Organisms: None Reported Past Surgical History: Back Surgery, Bowel Resection, Tonsillectomy Additional Past Surgical History / Comment(s): bowel resection after injury with ruptured colon, had colostomy/ later colostomy reversal, lumbar fusion 2018, colonoscopies Past Anesthesia/Blood Transfusion Reactions: No Reported Reaction Past Psychological History: No Psychological Hx Reported Smoking Status: Current every day smoker Past Alcohol Use History: None Reported Past Drug Use History: None Reported - Past Family History Father Family Medical History: Cancer Additional Family Medical History / Comment(s): prostate Mother Family Medical History: No Reported History General Exam - General Exam Comments Initial Comments: General: Appears in no acute distress. HEAD: Normal with no signs of head trauma. EYES: PERRLA, EOMI, conjunctiva normal, no discharge. ENT: Hearing grossly intact, normal oropharynx. RESPIRATORY: Clear breath sounds bilaterally. No wheezes, rales, or rhonchi. C/V: Regular rate and rhythm. S1 and S2 auscultated, no edema, peripheral pulses 2+ and intact throughout ABD: Abdomen is soft, nondistended. He appears to be easily reducible. No guarding. No rebound tenderness. No peritoneal signs. Mild tenderness to palpation in the epigastric region. EXT: Normal range of motion, no obvious deformity SKIN: No rashes or lesions observed on exposed skin. NEURO: Alert and oriented 4. Limitations: no limitations Course Vital Signs 12/29/22 12/29/22 12/30/22 16:53 22:11 00:11 Temperature 98.2 F Pulse Rate 94 70 85 Respiratory 18 18 18 Rate Blood Pressure 131/83 128/82 135/77 O2 Sat by Pulse 98 98 98 Oximetry Medical Decision Making - Medical Decision Making Was pt. sent in by a medical professional or institution (, PA, [employer]CHIT[employer], urgent care, hospital, or care home...) When possible be specific @ -No Did you speak to anyone other than the patient for history (EMS, parent, family, police, friend...)? What history was obtained from this source @ -No Did you review nursing and triage notes (agree or disagree)? Why? @ -I reviewed and agree with nursing and triage notes Were old charts reviewed (outside hosp., previous admission, EMS record, old EKG, old radiological studies, urgent care reports/EKG's, care home records)? Report findings @ -Reviewed charts from October 2022. Differential Diagnosis (chest pain, altered mental status, abdominal pain women, abdominal pain men, vaginal bleeding, weakness, fever, dyspnea, syncope, headache, dizziness, GI bleed, back pain, seizure, CVA, palpatations, mental health, musculoskeletal)? @ -Differential Abdominal Pain Women: Appendicitis, Cholecystitis, diverticulosis, ischemic bowel, pancreatitis, hepatitis, UTI, gastroenteritis, AAA, incarcerated hernia, bowel obstruction, constipation, inflammatory bowel, hepatitis, peptic ulcer disease, splenic infarction, perforated viscus, vulvitis, ovarian torsion, PID, kidney stone, placenta abruption, this is not meant to be an all-inclusive list EKG interpreted by me (3pts min.). @ -As above X-rays interpreted by me (1pt min.). @ -None done CT interpreted by me (1pt min.). @ -Patient's CT revealed ileitis but no evidence of small bowel obstruction or other acute intra-abdominal process. U/S interpreted by me (1pt. min.). @ -None done What testing was considered but not performed or refused? (CT, X-rays, U/S, labs)? Why? @ -None What meds were considered but not given or refused? Why? @ -None Did you discuss the management of the patient with other professionals (professionals i.e. , PA, [employer]CHIT[employer], lab, RT, psych nurse, social services specialist, business developer, teacher, ethics officer, manager case management)? Give summary @ -No Was smoking cessation discussed for >3mins.? @ -No Was critical care preformed (if so, how long)? @ -No Were there social determinants of health that impacted care today? How? (Homelessness, low income, unemployed, alcoholism, drug addiction, transportation, low edu. Level, literacy, decrease access to med. care, longterm, rehab)? @ -No Was there de-escalation of care discussed even if they declined (Discuss DNR or withdrawal of care, Hospice)? DNR status @ -No What co-morbidities impacted this encounter? (DM, HTN, Smoking, COPD, CAD, Cancer, CVA, ARF, Chemo, Hep., AIDS, mental health diagnosis, sleep apnea, morbid obesity)? @ -None Was patient admitted / discharged? Hospital course, mention meds given and route, prescriptions, significant lab abnormalities, going to OR and other pertinent info. @ -Based on the patient's presentation and physical exam, patient presents with acute on chronic abdominal pain likely secondary to her large ventral hernia. Has been passing gas as well as having bowel movements and tolerating oral intake but she does have a history of small bowel obstruction which is which is tender. Laboratory started in triage, and by the time I evaluated the patient did return. Labs were unremarkable. This includes a normal lactic acid. No leukocytosis. I did recommend we obtain a CT of the pelvis at this time and she was in agreement with the plan. Vital signs within acceptable limits. Screening EKG will also be obtained. Patiently symptomatic liter with IV fluids, Toradol, Zofran, Protonix. Patient's imaging was remarkable for ileitis. EKG showed no evidence of acute ischemic process. On reevaluation, patient is feeling improved. We discussed results. She'll be discharged home at this time. She was in agreement this plan. Strict return precautions were discussed. Discussion is to follow-up with her specialist and she'll contact them as soon as possible. I instructed the patient to follow up with their PCP in the next 1-3 days. I explained that the patient should return to the emergency department if they experience any worsening symptoms. Strict return precautions were discussed with the patient. The patient expressed understanding of these instructions. I answered all questions that the patient had. The patient was discharged home in good condition with their prescriptions and follow up information. Undiagnosed new problem with uncertain prognosis? @ -No Drug Therapy requiring intensive monitoring for toxicity (Heparin, Nitro, Insulin, Cardizem)? @ -No Were any procedures done? @ -No Diagnosis/symptom? @ -Ileitis, abdominal pain Acute, or Chronic, or Acute on Chronic? @ -Acute Uncomplicated (without systemic symptoms) or Complicated (systemic symptoms)? @ -Uncomplicated Side effects of treatment? @ -none Exacerbation, Progression, or Severe Exacerbation] @ -no Poses a threat to life or bodily function? @ -no - Lab Data Result diagrams: 12/29/22 20:00 12/29/22 20:00 Lab Results 12/29/22 12/29/22 12/29/22 Range/Units 20:00 20:00 20:00 WBC 6.5 (3.8-10.6) k/uL RBC 4.74 (3.80-5.40) m/uL Hgb 14.2 (11.4-16.0) gm/dL Hct 43.2 (34.0-46.0) % MCV 91.2 (80.0-100.0) fL MCH 30.0 (25.0-35.0) pg MCHC 32.9 (31.0-37.0) g/dL RDW 12.9 (11.5-15.5) % Plt Count 269 (150-450) k/uL MPV 7.4 Neutrophils % 68 % Lymphocytes % 22 % Monocytes % 6 % Eosinophils % 2 % Basophils % 0 % Neutrophils # 4.5 (1.3-7.7) k/uL Lymphocytes # 1.4 (1.0-4.8) k/uL Monocytes # 0.4 (0-1.0) k/uL Eosinophils # 0.2 (0-0.7) k/uL Basophils # 0.0 (0-0.2) k/uL Sodium 140 (137-145) mmol/L Potassium 3.6 (3.5-5.1) mmol/L Chloride 105 (98-107) mmol/L Carbon Dioxide 26 (22-30) mmol/L Anion Gap 9 mmol/L BUN 14 (7-17) mg/dL Creatinine 0.59 (0.52-1.04) mg/dL Est GFR (CKD-EPI)AfAm >90 (>60 ml/min/1.73 sqM) Est GFR (CKD-EPI)NonAf >90 (>60 ml/min/1.73 sqM) Glucose 90 (74-99) mg/dL Plasma Lactic Acid Carlos 0.9 (0.7-2.0) mmol/L Calcium 9.0 (8.4-10.2) mg/dL Total Bilirubin 0.3 (0.2-1.3) mg/dL AST 34 (14-36) U/L ALT 28 (4-34) U/L Alkaline Phosphatase 96 (38-126) U/L Total Protein 6.7 (6.3-8.2) g/dL Albumin 4.0 (3.5-5.0) g/dL Amylase 44 (30-110) U/L Lipase 103 (23-300) U/L - EKG Data -: EKG Interpreted by Me EKG Comments: 12-lead Electrocardiogram Interpretation Note EKG was reviewed and interpreted by myself. 12-lead ECG performed at 2204 is interpreted by me as revealing normal sinus rhythm at a rate of 75 beats per minute. [place] is normal.. [place] Intervals 135 ms, QRS duration is 98 ms, QTc is 412 ms. Incomplete right bundle branch block.. There were no ST or T wave abnormalities to suggest myocardial ischemia or injury. R wave progression across the precordium was satisfactory. By my interpretation this EKG is non- diagnostic for acute ischemia.When compared with EKG from 11/14/2022, no significant change. Disposition Clinical Impression: Ileitis, Abdominal pain Disposition: HOME SELF-CARE Condition: Good Instructions (If sedation given, give patient instructions): Abdominal Pain (ED) Prescriptions: Famotidine [Pepcid] 20 mg PO DAILY 7 Days #7 tablet Ondansetron Odt [Zofran Odt] 4 mg PO Q8HR PRN 3 Days #9 tab PRN Reason: Nausea Is patient prescribed a controlled substance at d/c from ED?: No Referrals: Christian Gutierrez MD [Primary Care Provider] - 1-2 days Time of Disposition: 23:42
--- NOTE | 2022-12-29 23:36 | CT ---
EXAM: CT Abdomen and Pelvis With Intravenous Contrast CLINICAL HISTORY: abd pain, hernia pain TECHNIQUE: Axial computed tomography images of the abdomen and pelvis with intravenous contrast. CTDI is 21.6 mGy and DLP is 1040.6 mGy-cm. This CT exam was performed using one or more of the following dose reduction techniques: automated exposure control, adjustment of the mA and/or kV according to patient size, and/or use of iterative reconstruction technique. Coronal and sagittal reformatted images were created and reviewed. 473 images COMPARISON: 11/14/22 FINDINGS: Lung bases: Unremarkable. No mass. No consolidation. ABDOMEN: Liver: Unremarkable. No mass. Gallbladder and bile ducts: Unremarkable. No calcified stones. No ductal dilation. Pancreas: Unremarkable. No mass. No ductal dilation. Spleen: Unremarkable. No splenomegaly. Adrenals: Unremarkable. No mass. Kidneys and ureters: Subcentimeter left renal cysts, too small to characterize. No hydronephrosis. Stomach and bowel: Mild circumferential wall thickening of the terminal ileum measuring up to 6 mm, best seen on series 202 image 44. PELVIS: Appendix: normal. Bladder: Unremarkable. No mass. Reproductive: Unremarkable as visualized. ABDOMEN and PELVIS: Intraperitoneal space: Unremarkable. No free air. No significant fluid collection. Bones/joints: L5 and S1 are fused with posterior paravertebral rods, pedicle screws, and intervertebral fusion cage cause streak artifact, decreases the sensitivity on associated images. 4 mm anterolisthesis at this level. Soft tissues: Large diastases of anterior pelvic wall, with superimposed broad-based herniation containing mesenteric fat, vessels, and loops of large and small bowel, with no bowel dilatation or wall thickening. Midline abdominal and pelvic scar. Vasculature: Unchanged. Lymph nodes: Unremarkable. No enlarged lymph nodes. IMPRESSION: Mild circumferential wall thickening of terminal ileum is likely due to underdistention. Terminal ileitis should also be considered.
[2022-12-30 00:12] VITALS: BP 135/77; PULSE 85
== END 2022-12-30 00:12 | disposition home or self-care (01) ==
LOC: EC 16:51
DX: K52.9 Noninfective gastroenteritis and colitis, unspecified (principal); F17.200 Nicotine dependence, unspecified, uncomplicated
CPT/HCPCS: 36415; 93005; 80053; 82150; 83605; 83690; 85025; 74177; 99285; 96374; 96375 ×2; 96361; J2405; J1885; C9113; Q9967

== ENCOUNTER → 2023-07-15 | Outpatient (CLI) | payer BC, MEDICARE ==
[2023-07-15 18:33] LABS: Basophils # (A) 0.03 X 10*3/uL (0.00-0.10); Basophils % (A) 0.6 %; Eosinophils % (A) 3.8 %; HCT 40.5 % (37.2-46.3); HGB 13.3 g/dL (12.0-15.0); Lymphocytes # (A) 0.84 X 10*3/uL (0.90-5.00); Lymphocytes % (A) 15.8 %; MCH 29.4 pg (27.0-32.0); MCHC 32.8 g/dL (32.0-37.0); MCV 89.4 FL (80.0-97.0); Mean Platelet Volume 10.4 FL (9.5-12.2); Monocytes # (A) 0.35 X 10*3/uL (0.20-1.00); Monocytes % (A) 6.6 %; NRBC Per 100 WBC 0 X 10*3/uL (0.00-0.01); Neutrophils # (A) 3.88 X 10*3/uL (1.80-7.70); Neutrophils % (A) 72.8 %; Platelet Count 271 X 10*3/uL (140-440); RBC 4.53 X 10*6/uL (4.10-5.20); RDW 13.5 % (11.5-14.5); WBC 5.32 X 10*3/uL (4.50-10.00)
[2023-07-15 19:18] LABS: Hepatitis B Surface Antigen Nonreactive
[2023-07-15 19:23] LABS: ALT 16 U/L (8-44); AST 27 U/L (13-35); Albumin 4.1 g/dL (3.8-4.9); Albumin/Globulin Ratio 1.95 Ratio (1.60-3.17); Alkaline Phosphatase 98 U/L (41-126); BUN/Creat Ratio 14.17 Ratio (12.00-20.00); Blood Urea Nitrogen 8.5 mg/dL (9.0-27.0); Calcium 9.7 mg/dL (8.7-10.3); Carbon Dioxide 24.7 mmol/L (21.6-31.8); Chloride 109 mmol/L (96-109); Globulin 2.1 g/dL (1.6-3.3); Glucose 91 mg/dL (70-110); Potassium 4.1 mmol/L (3.5-5.5); Sodium 147 mmol/L (135-145); Total Bilirubin 0.3 mg/dL (0.3-1.2); Total Protein 6.2 g/dL (6.2-8.2)
[2023-07-15 19:25] LABS: Hepatitis B Surface AB- Quant 3.5 mIU/mL
[2023-07-18 12:04] LABS: Immunoglobulin E 6.35 IU/mL (0.00-114.00)
== END | disposition home or self-care (01) ==
LOC: LABWHC1 12:28
PROVIDERS: ATTEND Psychiatry & Neurology Neurology
DX: G35 Multiple sclerosis (principal); K50.90 Crohn's disease, unspecified, without complications; Z79.899 Other long term (current) drug therapy
CPT/HCPCS: 36415; 80053; 82784; 82785; 85025; 86704; 86706; 87340

== ENCOUNTER → 2024-09-17 | Outpatient (CLI) | payer BC ==
--- NOTE | 2024-09-17 09:09 | MM ---
Reason for Exam: Screening (asymptomatic). Last screening mammogram was performed less than 1 month ago. Patient History: Menarche at age 13. First Full-Term at age 42. Late child-bearing (after 30). Postmenopausal. Hormonal Contraceptives for 13 years from age 22 until age 35. Sister had breast cancer, age 52. Risk Values: Lauren 5 year model risk: 2.8%. NCI Lifetime model risk: 14.6%. Prior Study Comparison: 07/19/2011 Bilateral Screening Mammogram, [facility]. 07/23/2011 Right Diagnostic Mammogram, [facility]. 12/18/2015 Bilateral Screening Mammogram, [facility]. Tissue Density: The breasts are heterogeneously dense, which may obscure small masses. Findings: Analyzed By CAD. There is no suspicious group of microcalcifications or new suspicious mass in either breast. Overall Assessment: Negative, BI-RAD 1 Management: Screening Mammogram of both breasts in 1 year. . Patient should continue monthly self-breast exams. A clinical breast exam by your physician is recommended on an annual basis. This exam should not preclude additional follow-up of suspicious palpable abnormalities. Note on Lauren scores and lifetime risk: 1. A Lauren score greater than 3% is considered moderate risk. If this is the case, consider specialist referral to assess eligibility for a risk reducing agent. 2. If overall lifetime risk for the development of breast cancer is 20% or higher, the patient may qualify for future screening with alternating mammogram and breast MRI. [facility], , 09/17/2024 9:07 AM. Electronically signed and approved by: Triston Boss M.D. Radiologis
== END | disposition home or self-care (01) ==
LOC: RADMAMWWP 08:46
PROVIDERS: ATTEND Family Medicine
DX: Z12.31 Encounter for screening mammogram for malignant neoplasm of breast (principal); R92.333 Mammographic heterogeneous density, bilateral breasts; Z78.0 Asymptomatic menopausal state; Z80.3 Family history of malignant neoplasm of breast
CPT/HCPCS: 77063; 77067

== ENCOUNTER → 2024-09-19 | Outpatient (CLI) | payer BC ==
[~2024-09-19] MED LIST changes: -LACTATED RINGERS 1,000 ML IV SCH; -LIDOCAINE 1% (10MG/ML) FOR IV START INTRADERMA PRN; +REGADENOSON 0.4 MG/5 ML SYRINGE IV PRN
--- NOTE | 2024-09-19 12:10 | CA ---
Lexiscan Nuclear Stress Test Report Name: Zoe Hernandez Exam Date: 09/19/2024 10:51 Exam Location: [place] Stress Ht (in): 62 Wt (lb): 194 BSA: 1.89 Ordering Phys: Christian Gutierrez MD Referring Phys: Bharti Garsia [facility] [place] Technologist: SE SHARMA Age: 59 Gender: F : 1965 Procedure CPT: Indications: R94.31 ABNORMAL EKG ICD-10 Codes: Patient History: PALPITATIONS, CURRENT SMOKER 0.5 PPD X 35 YEARS Medications: SEE LIST,,, Meds past 24 hrs: Pretest Chest Pain: STRESS TEST Lexiscan Protocol Exercise Duration (min:sec): 02:[address] Depressions (mm): Angina Score: Hurley Score: Resting HR (bpm): 77 Peak HR (bpm): 103 Resting BP (mmHg): 118 / 77 Peak BP (mmHg): 118 / 77 MPHR: 161 Target HR: 137 % MPHR: 64 METS: 1.0 Total Dose: Peak Dose: Atropine: Double Product: 62644 BP Response: Stress Termination: INFUSION COMPLETE Stress Symptoms: NO SYMPTOMS Stress Summary: ECG ANALYSIS Resting ECG: Stress ECG: CONCLUSIONS Indication for the procedure: Abnormal EKG, palpitations, history of smoking, Lexiscan infusion per protocol No ECG evidence for ischemia or arrhythmia Dr. Jason Linda MD (Electronically Signed) Final Date: 19 September 2024 12:09
--- NOTE | 2024-09-19 14:05 | NM ---
EXAMINATION TYPE: NM stress lexiscan cardiolite DATE OF EXAM: 09/19/2024 COMPARISON: NONE CLINICAL INDICATION: Female, 59 years old with history of R94.31 ABNORMAL EKG; TECHNIQUE: After the intravenous administration of 9 mCi Tc 99m Sestamibi - Cardiolite resting SPECT images acquired 65 minutes post injection. The patient received 0.4mg Lexiscan, 24.8 mCi Tc 99m Sestamibi - Stress images obtained [address] injection FINDINGS: Review of stress and rest SPECT images demonstrates a moderate-sized fixed defect along the anterosep latanya wall. No discrete reversibility is seen. Gated analysis shows normal wall motion with an estimate d left ventricular ejection fraction of 61 %. TID is 0.93, within normal limits. IMPRESSION: Either old infarct versus attenuation artifact involving the anteroseptal wall. Clinically correlate. Otherwise, no scintigraphic evidence for reversible ischemia. [facility], , 09/19/2024 2:03 PM
== END | disposition home or self-care (01) ==
LOC: RADNMMAIN 08:17
PROVIDERS: ATTEND Family Medicine
DX: R94.31 Abnormal electrocardiogram [ECG] [EKG] (principal); R00.2 Palpitations; Z87.891 Personal history of nicotine dependence
CPT/HCPCS: 93017; 78452; A9500; J2785

== ENCOUNTER → 2024-12-31 | Outpatient (CLI) | payer BC ==
[2024-12-31 19:59] LABS: Basophils # (A) 0.04 X 10*3/uL (0.00-0.10); Basophils % (A) 0.4 %; Eosinophils # (A) 0.09 X 10*3/uL (0.04-0.35); Eosinophils % (A) 0.9 %; HCT 42.8 % (37.2-46.3); HGB 14.0 g/dL (12.0-15.0); Immature Grans, Automated 0.40 %; Lymphocytes # (A) 0.86 X 10*3/uL (0.90-5.00); Lymphocytes % (A) 9.0 %; MCH 28.6 pg (27.0-32.0); MCHC 32.7 g/dL (32.0-37.0); MCV 87.3 FL (80.0-97.0); Monocytes # (A) 0.46 X 10*3/uL (0.20-1.00); Monocytes % (A) 4.8 %; NRBC Per 100 WBC 0 X 10*3/uL (0.00-0.01); Neutrophils # (A) 8.04 X 10*3/uL (1.80-7.70); Neutrophils % (A) 84.5 %; Platelet Count 327 X 10*3/uL (140-440); RBC 4.90 X 10*6/uL (4.10-5.20); RDW 14.1 % (11.5-14.5); WBC 9.53 X 10*3/uL (4.50-10.00)
[2024-12-31 20:18] LABS: ALT 16 U/L (8-44); AST 27 U/L (13-35); Albumin 4.1 g/dL (3.8-4.9); Albumin/Globulin Ratio 1.71 Ratio (1.60-3.17); Alkaline Phosphatase 112 U/L (41-126); Anion Gap 14.80 mmol/L (4.00-12.00); BUN/Creat Ratio 10.67 Ratio (12.00-20.00); Blood Urea Nitrogen 6.4 mg/dL (9.0-27.0); Calcium 9.5 mg/dL (8.7-10.3); Carbon Dioxide 28.2 mmol/L (21.6-31.8); Chloride 100 mmol/L (96-109); Globulin 2.4 g/dL (1.6-3.3); Glucose 83 mg/dL (70-110); Potassium 3.3 mmol/L (3.5-5.5); Sodium 143 mmol/L (135-145); Total Protein 6.5 g/dL (6.2-8.2)
== END | disposition home or self-care (01) ==
LOC: LABWHC1 12:38
PROVIDERS: ATTEND Nurse Practitioner Family
DX: E87.6 Hypokalemia (principal); K50.90 Crohn's disease, unspecified, without complications
CPT/HCPCS: 36415; 80053; 85025